=== PATIENT | male | born 1955 | race Caucasian/White ===

== ENCOUNTER → 2016-11-08 | Day surgery (SDC) | payer MEDICAID ==
[~2016-11-08] MED LIST: ALBUMIN HUMAN 100 ML IV PRN
[2016-11-08 10:02] VITALS: BP 152/82
[2016-11-08 10:22] LABS: PROTHROMBIN TIME 14.1 SEC (11.4-15.4)
[2016-11-08 10:23] LABS: PARTIAL THROMBOPLASTIN TIME 32.4 SEC (23.5-35.8)
[2016-11-08 10:59] LABS: HEMOGLOBIN 11.8 g/dL (13.5-17.0); HGB HCT DIFFERENCE -0.6; MEAN CORPUSCULAR HEMOGLOBIN 28.6 pg (27.0-33.4); MEAN CORPUSCULAR HGB CONC 32.8 g/dL (32.0-36.0); MEAN CORPUSCULAR VOLUME 87 fl (80-97); RED BLOOD COUNT 4.13 10^6/uL (4.35-5.55); RED CELL DISTRIBUTION WIDTH 16.5 % (11.5-14.0); WHITE BLOOD COUNT 5.8 10^3/uL (4.0-10.5)
[2016-11-08 11:09] LABS: ANION GAP 7 (5-19); BLOOD UREA NITROGEN 27 mg/dL (7-20); CALCIUM 8.8 mg/dL (8.4-10.2); CARBON DIOXIDE 30 mmol/L (22-30); CHLORIDE 103 mmol/L (98-107); CREATININE RESULT 1.16 mg/dL (0.52-1.25); GLUCOSE 63 mg/dL (75-110); POTASSIUM 4.3 mmol/L (3.6-5.0); SODIUM 140.2 mmol/L (137-145)
--- NOTE | 2016-11-08 14:41 | RADIOLOGY REPORT (SQ) ---
EXAM DESCRIPTION: U/S ABDOMEN LIMITED W/O DOP COMPLETED DATE/TIME: 11/08/2016 12:03 pm REASON FOR STUDY: ASCITES R18.8 OTHER ASCITES COMPARISON: None. TECHNIQUE: Limited Static and real time jovel scale imaging performed of the 4 abdominal quadrants an d the midline. LIMITATIONS: None. FINDINGS: ASCITES: None identified. OTHER: No other significant finding. IMPRESSION: NO EVIDENCE FOR ASCITES. TECHNICAL DOCUMENTATION: JOB ID: [id number] [employer]- All Rights Reserved
== END ==
LOC: RAD 09:05
PROVIDERS: ATTEND Family Medicine
PROC: 0W9G3ZZ Drainage of Peritoneal Cavity, Percutaneous Approach (ICD-10-PCS; principal; 2016-11-08)
DX: R18.8 Other ascites (principal)
CPT/HCPCS: 36415; 85027; 85610; 85730; 80048; 76705; P9047

== ENCOUNTER 2017-05-01 22:27 | Observation (INO) | payer MEDICAID ==
[2017-05-01] MEDS ORDERED: ONDANSETRON HCL INJ/PF 4 MG/2 ML SDV IV ONE (23:01)
[2017-05-01] MEDS ORDERED: NORMAL SALINE 1000 ML 1,000 ML IV ONE (23:01)
[2017-05-01] MEDS ORDERED: ONDANSETRON HCL INJ/PF 4 MG/2 ML SDV ONE (23:04)
--- NOTE | 2017-05-01 23:27 | ER Document Report ---
ED General - General Chief Complaint: Abdominal Pain Stated Complaint: ABDOMINAL PAIN Time Seen by Provider: 05/01/17 23:00 Notes: Patient is a 61-year-old male with a past medical history of chronic hep C cirrhosis, peripheral vascular disease, insulin-dependent diabetes, hypertension , hyperlipidemia, chronic pain on methadone, who presents with 24 hours of progressively worsening abdominal pain and vomiting. Patient notes that he has had multiple episodes of a greenish colored vomitus since onset of the pain. He describes the pain as being present in his central abdomen and is a dull, constant, cramping pain. Nothing improves or worsens that pain. He denies any history of similar symptoms in the past. He has a past abdominal surgical history of a cholecystectomy. He denies any fever. He has not seen his general doctor regarding today's concerns. He denies any chest pain or shortness of breath. He has had a bowel movement today. TRAVEL OUTSIDE OF THE [place] IN LAST 30 DAYS: No - Related Data Allergies/Adverse Reactions: acetaminophen [From Darvocet-N 100] Allergy (Severe, Verified 04/09/13 17:30) Generalized Itching Penicillins Allergy (Verified 11/03/13 19:23) propoxyphene napsylate [From Darvocet-N 100] Allergy (Verified 04/09/13 17:30) Past Medical History - General Information source: Patient - Social History Smoking Status: Former Smoker Frequency of alcohol use: None Drug Abuse: None Lives with: Alone Family History: Reviewed & Not Pertinent Patient has suicidal ideation: No Patient has homicidal ideation: No - Past Medical History Cardiac Medical History: Reports: Hx Hypercholesterolemia, Hx Hypertension Denies: Hx Atrial Fibrillation, Hx Congestive Heart Failure, Hx Coronary Artery Disease, Hx Heart Attack, Hx Peripheral Vascular Disease, Hx Pulmonary Embolism, Hx Heart Murmur Pulmonary Medical History: Reports: Hx COPD - ON MEDICATION Denies: Hx Asthma, Hx Bronchitis, Hx Pneumonia, Hx Respiratory Failure, Hx Sleep Apnea, Hx Tuberculosis Neurological Medical History: Denies: Hx Cerebrovascular Accident, Hx Seizures Endocrine Medical History: Reports: Hx Diabetes Mellitus Type 2, Hx Hypothyroidism - on meds. Denies: Hx Graves' Disease, Hx Hyperthyroidism Renal/ Medical History: Denies: Hx Benign Prostatic Hyperplasia, Hx End Stage Renal Disease, Hx Peritoneal Dialysis Malignancy Medical History: Denies Hx Lung Cancer GI Medical History: Reports: Hx Cirrhosis, Hx Gastroesophageal Reflux Disease - mild. Denies: Hx Crohn's Disease, Hx Hiatal Hernia, Hx Irritable Bowel, Hx Liver Failure, Hx Pancreatitis, Hx Ulcer Musculoskeltal Medical History: Reports Hx Arthritis, Denies Hx Fibromyalgia, Denies Hx Muscular Dystrophy Psychiatric Medical History: Reports: Hx Depression Traumatic Medical History: Denies: Hx Fractures Past Surgical History: Reports: Hx Cholecystectomy, Hx Orthopedic Surgery - Lt BKA. Denies: Hx Appendectomy, Hx Bowel Surgery, Hx Colostomy, Hx Coronary Artery Bypass Graft, Hx Gastric Bypass Surgery, Hx Herniorrhaphy, Hx Pacemaker, Hx Tonsillectomy - Immunizations Hx Diphtheria, Pertussis, Tetanus Vaccination: Yes Hx Pneumococcal Vaccination: 02/07/13 Review of Systems - Review of Systems Notes: Constitutional: Negative for fever. HENT: Negative for sore throat. Eyes: Negative for visual changes. Cardiovascular: Negative for chest pain. Respiratory: Negative for shortness of breath. Gastrointestinal: Positive for abdominal pain and vomiting Genitourinary: Negative for dysuria. Musculoskeletal: Negative for back pain. Skin: Negative for rash. Neurological: Negative for headaches, weakness or numbness. 10 point ROS negative except as marked above and in HPI. Physical Exam - Vital signs Vitals: Resp Pulse Ox 19 98 05/01/17 22:37 05/01/17 22:37 Interpretation: Tachycardic Notes: PHYSICAL EXAMINATION: GENERAL: Chronically ill in appearance but in no acute distress HEAD: Atraumatic, normocephalic. EYES: Pupils equal round and reactive to light, extraocular movements intact, sclera anicteric, conjunctiva are normal. ENT: nares patent, oropharynx clear without exudates. Dry mucous membranes. NECK: Normal range of motion, supple without lymphadenopathy LUNGS: Breath sounds clear to auscultation bilaterally and equal. No wheezes rales or rhonchi. HEART: Regular tachycardia without murmurs ABDOMEN: Moderately distended abdomen, caput medusa present, bowel sounds are present. Diffuse mild generalized tenderness to palpation without rebound or guarding. No free fluid on bedside ultrasound. EXTREMITIES: Normal range of motion, no pitting or edema. No cyanosis. NEUROLOGICAL: No focal neurological deficits. Moves all extremities spontaneously and on command. PSYCH: Normal mood, normal affect. SKIN: Warm, Dry, normal turgor, no rashes or lesions noted. Course - Re-evaluation Re-evalutation: 05/01/17 23:26 Patient presents with 12 hours of progressively worsening generalized lower abdominal pain most focal to the right lower quadrant. He does have a history of liver cirrhosis with caput medusa on exam but bedside ultrasound does not reveal any intraperitoneal fluid to suggest a possible diagnosis of spontaneous bacterial peritonitis or any fluid that would be amenable to paracentesis. Patient has been vomiting although he reports he had a bowel movement today and continues to pass flatus. However, given prior surguries SBO is on the differential He is very status post cholecystectomy several years ago effectively removing biliary pathology from the differential diagnosis. Patient also reports that he started new medicines to help move his bowels today and believes that this may be the cause of his pain. Will proceed with labs, CT abdomen pelvis and reassess 05/02/17 01:44 CT shows findings consistent with an SBO. Will insert NG tube, consult with surgery. 05/02/17 01:54 I discussed this case with the surgeon on-call who has accepted the patient. - Vital Signs Vital signs: Temp Pulse Resp BP Pulse Ox 98.6 F 17 154/67 H 96 05/01/17 23:05 05/01/17 23:05 05/01/17 23:05 05/01/17 23:05 - Laboratory Result Diagrams: 05/01/17 23:51 05/01/17 23:51 Laboratory results interpreted by me: 05/01/17 05/01/17 05/02/17 23:51 23:51 00:44 Hgb 12.6 L RDW 15.9 H Plt Count 115 L Seg Neutrophils % 84.3 H Lymphocytes % 9.8 L BUN 43 H Creatinine 1.34 H Est GFR (Non-Af Amer) 54 L Glucose 183 H Urine Protein >=500 H Urine Glucose (UA) 150 H Urine Blood SMALL H - Diagnostic Test Radiology reviewed: Reports reviewed Discharge - Discharge Clinical Impression: Small bowel obstruction, Dehydration Vomiting Qualifiers: Vomiting type: unspecified Vomiting Intractability: non-intractable Nausea presence: with nausea Qualified Code(s): R11.2 - Nausea with vomiting, unspecified Condition: Fair Disposition: ADMITTED INPATIENT Admitting Provider: Surgicalist - [facility] Admitted: Surgical Floor
[2017-05-02 00:04] LABS: ABSOLUTE BASOPHILS # (AUTO) 0.1 10^3/uL (0.0-0.2); ABSOLUTE LYMPHOCYTES (AUTO) 0.7 10^3/uL (0.5-4.7); ABSOLUTE MONOCYTES (AUTO) 0.3 10^3/uL (0.1-1.4); ABSOLUTE NEUT (AUTO) 6.1 10^3/uL (1.7-8.2); BASOPHILS % (AUTO) 0.9 % (0-2); EOSINOPHILS % (AUTO) 0.6 % (0-6); HEMATOCRIT 38.1 % (37.9-51.0); HEMOGLOBIN 12.6 g/dL (13.5-17.0); LYMPHOCYTES % (AUTO) 9.8 % (13-45); MEAN CORPUSCULAR HEMOGLOBIN 27.7 pg (27.0-33.4); MEAN CORPUSCULAR VOLUME 84 fl (80-97); MONOCYTES % (AUTO) 4.4 % (3-13); PLATELET COUNT 115 10^3/uL (150-450); RED BLOOD COUNT 4.55 10^6/uL (4.35-5.55); RED CELL DISTRIBUTION WIDTH 15.9 % (11.5-14.0); SEGMENTED NEUTROPHILS % (AUTO) 84.3 % (42-78); TOTAL CELLS COUNTED % (AUTO) 100 %; WHITE BLOOD COUNT 7.3 10^3/uL (4.0-10.5)
[2017-05-02 00:23] LABS: ALANINE AMINOTRANSFERASE 51 U/L (21-72); ALBUMIN 3.8 g/dL (3.5-5.0); ALKALINE PHOSPHATASE 79 U/L (38-126); ANION GAP 13 (5-19); ASPARTATE AMINO TRANSFERASE 45 U/L (17-59); BILIRUBIN,DIRECT 0.4 mg/dL (0.0-0.4); BILIRUBIN,TOTAL 0.7 mg/dL (0.2-1.3); BLOOD UREA NITROGEN 43 mg/dL (7-20); CALCIUM 9.6 mg/dL (8.4-10.2); CARBON DIOXIDE 27 mmol/L (22-30); CHLORIDE 103 mmol/L (98-107); GLUCOSE 183 mg/dL (75-110); LIPASE 63.3 U/L (23-300); POTASSIUM 4.6 mmol/L (3.6-5.0); SODIUM 143.1 mmol/L (137-145); TOTAL PROTEIN 7.8 g/dL (6.3-8.2)
--- NOTE | 2017-05-02 01:28 | RADIOLOGY REPORT (SQ) ---
EXAM DESCRIPTION: CT ABD/PELVIS WITH IV ONLY COMPLETED DATE/TIME: 05/02/2017 12:58 am REASON FOR STUDY: rlq abdominal pain, vomiting COMPARISON: CT abdomen and pelvis 04/09/2013. TECHNIQUE: CT scan of the abdomen and pelvis performed using helical scanning technique with dynamic intravenous contrast injection. No oral contrast. Images reviewed with lung, soft tissue, and bone windows. Reconstructed coronal and sagittal MPR images reviewed. Delayed images for evaluation of the urinary system also acquired. All images stored on PACS. All CT scanners at this facility use dose modulation, iterative reconstruction, and/or weight based d osing when appropriate to reduce radiation dose to as low as reasonably achievable (ALARA). [facility]: Dose Right [facility]: CareDose [facility]: Dose Right [facility]: Teradose 4D [facility]: [employer] CONTRAST TYPE AND DOSE: contrast/concentration: Isovue 370.00 mg/ml; Total Contrast Delivered: 90.0 ml; Total Saline Delivered: 70.0 ml RENAL FUNCTION: Creatinine 1.34 RADIATION DOSE: CT Rad equipment meets quality standard of care and radiation dose reduction techniq ues were employed. CTDIvol: 20.8 mGy. DLP: 2459 mGy-cm.. LIMITATIONS: None. FINDINGS: LOWER CHEST: Ground-glass opacity at the left lower lobe. No pleural effusion. Coronary arteries calcifications are noted. LIVER: Diffuse decreased attenuation. Mildly nodular contour with hypertrophy of the left 5th lobe a nd caudate lobe. No masses. Periportal adenopathy measuring 1.3 x 3.0 cm. SPLEEN: Enlarged measuring 17.3 cm. PANCREAS: No significant calcifications. No adjacent inflammation or peripancreatic fluid collections . Pancreatic duct not dilated. GALLBLADDER: Surgically absent. ADRENAL GLANDS: No significant masses or asymmetry. RIGHT KIDNEY AND URETER: No solid masses. No significant calcifications. No hydronephrosis or hyd roureter. LEFT KIDNEY AND URETER: No solid masses. No significant calcifications. No hydronephrosis or hydr oureter. AORTA AND VESSELS: No abdominal aortic aneurysm. RETROPERITONEUM: No retroperitoneal hemorrhage or masses. BOWEL AND PERITONEAL CAVITY: The stomach is distended with an air-fluid level. There are multiple di lated small bowel loops with air-fluid levels. The distal small bowel is collapsed. There is changi ng caliber of small bowel loops in the midline lower abdomen. No free fluid or free air. APPENDIX: Normal. PELVIS: The urinary bladder is decompressed. No pelvic mass. No free fluid. ABDOMINAL WALL: There is diastasis recti. Small fat containing paraumbilical hernia. BONES: Degenerative changes in the spine. IMPRESSION: 1. Distended stomach with an air-fluid level and multiple dilated small bowel loops with air-fluid levels, worrisome for small bowel obstruction, possible transition point in the midline lo wer abdomen. 2. Fatty infiltration of the liver. Mildly nodular contour of the liver with hypertrophy of the left hepatic lobe and caudate lobe, suggestive of cirrhosis. Periportal adenopathy. 3. Splenomegaly. 4. Ground-glass opacity at the left lower lobe, probably representing pneumonia. TECHNICAL DOCUMENTATION: JOB ID: [id number] [facility] Quality ID # [id number]: Final reports with documentation of one or more dose reduction techniques (e.g., Au tomated exposure control, adjustment of the mA and/or kV according to patient size, use of iterative reconstruction technique) 2010 [employer]- All Rights Reserved
[2017-05-02 01:30] LABS: APPEARANCE,URINE CLEAR; BILIRUBIN,URINE NEGATIVE (NEGATIVE); COLOR,URINE YELLOW; GLUCOSE, URINE 150 mg/dL (NEGATIVE); KETONES,URINE NEGATIVE (NEGATIVE); LEUKOCYTE ESTERASE,URINE NEGATIVE (NEGATIVE); NITRITE,URINE NEGATIVE (NEGATIVE); PROTEIN,URINE >=500 mg/dL (NEGATIVE); URINE SPECIFIC GRAVITY 1.016; UROBILINOGEN,URINE NEGATIVE mg/dL (<2.0)
[2017-05-02] MEDS ORDERED: MIDAZOLAM 2 MG/2 ML INJ IV ONE ×2 (01:44→03:35)
[2017-05-02] MEDS ORDERED: NORMAL SALINE 1000 ML 1,000 ML IV ONE (01:51)
[2017-05-02] MEDS ORDERED: LIDOCAINE 2% VISCOUS SOLN 20 ML UDCUP PO ONE ×2 (02:02→03:35)
--- NOTE | 2017-05-02 03:42 | RADIOLOGY REPORT (SQ) ---
EXAM DESCRIPTION: NASO/OROGASTRIC TUBE PLACEMENT COMPLETED DATE/TIME: 05/02/2017 2:34 am REASON FOR STUDY: placement verification COMPARISON: CT abdomen and pelvis 05/02/2017. TECHNIQUE: Frontal view of the chest/upper abdomen. LIMITATIONS: Patient's body habitus. FINDINGS: An enteric tube is coiled at the distal esophagus with the tip at the upper esophagus, the C7 level. The heart is upper normal limit in size. Airspace opacity seen at the left lung base. No sizable pl eural effusion or pneumothorax. IMPRESSION: 1. Enteric tube coiled at the distal esophagus with the tip at the upper esophagus. Re positioning recommended. 2. Airspace opacity at the left lung base, may represent atelectasis or pneumonia. COMMENT: Pertinent findings on the imaging study reported as a CRITICAL RESULT to ERICA christianson t03:36 hrs on 05/02/2017. Category of Critical Result: Enteric tube coiled at the distal esophagus with the tip at the upper es ophagus. Repositioning recommended. TECHNICAL DOCUMENTATION: JOB ID: [id number] [place]-64 2010 [employer]- All Rights Reserved
[2017-05-02] MEDS: MORPHINE SULFATE 10 MG/ML INJ IV PRN ×2 (04:58→07:06)
--- NOTE | 2017-05-02 05:03 | RADIOLOGY REPORT (SQ) ---
EXAM DESCRIPTION: NASO/OROGASTRIC TUBE PLACEMENT COMPLETED DATE/TIME: 05/02/2017 4:35 am REASON FOR STUDY: verification ng placement COMPARISON: CT abdomen and pelvis and chest/ upper abdomen x-ray 05/02/2017. TECHNIQUE: 1 supine frontal view of the chest/upper abdomen was obtained on 05/02/2017 at 04:25 hours. LIMITATIONS: Patient's body habitus. FINDINGS: An enteric tube terminates in the left upper quadrant, in the expected location of the gas tric body. Otherwise, no significant interval change in the appearance of the visualized chest. IMPRESSION: Enteric tube with the tip at the gastric body. TECHNICAL DOCUMENTATION: JOB ID: [id number] [id number] 2010 [employer]- All Rights Reserved
--- NOTE | 2017-05-02 06:27 | EKG REPORT ---
SEVERITY:- ABNORMAL ECG - SINUS RHYTHM INFERIOR INFARCT, OLD CONSIDER ANTERIOR INFARCT BORDERLINE PROLONGED QT INTERVAL : Confirmed by: Paramjit Thakkar MD 02-May-2017 06:27:09
[2017-05-02] MEDS ORDERED: NORMAL SALINE 1000 ML 1,000 ML IV PRN (07:18)
--- NOTE | 2017-05-02 08:39 | PDOC H&P ---
History of Present Illness Admission Date/PCP: 05/02/17 02:25 CHARLIE MCGILL MD Patient complains of: Transient abdominal pain last night History of Present Illness: ART SORENSEN is a 61 year old male who persented to the ER last night with abdominal pain that started earlier in the day. It was mainly in the right lower side. He did have a bowel movement yesterday morning but felt like he needed to move his bowels overnight when he had his symptoms. He is opiate- dependent and is on Methadone. He also takes a laxative usually. He denies any nausea or vomiting. No abdominal distension. A CT abdomen done in the ER was concerning for possible bowel obstruction as he had some dilated loops of small bowel. He had an NGT placed. The pain is gone now and he wants to know if he can go home. Past Medical History Cardiac Medical History: Reports: Hyperlipidema, Hypertension Denies: Atrial Fibrillation, Congestive Heart Failure, Coronary Artery Disease, Myocardial Infarction, Peripheral Vascular Disease, Pulmonary Embolism , Heart Murmur Pulmonary Medical History: Reports: Chronic Obstructive Pulmonary Disease (COPD ) - ON MEDICATION Denies: Asthma, Bronchitis, Pneumonia, Respiratory Failure, Sleep Apnea, Tuberculosis Neurological Medical History: Denies: Seizures Endocrine Medical History: Reports: Diabetes Mellitus Type 2, Hypothyroidism - on meds Denies: Hyperthyroidism Renal/ Medical History: Denies: End Stage Renal Disease Malignancy Medical History: Denies: Lung Cancer GI Medical History: Reports: Cirrhosis, Gastroesophageal Reflux Disease - mild Denies: Crohn's Disease, Hiatal Hernia Musculoskeltal Medical History: Reports: Arthritis Denies: Fibromyalgia Psychiatric Medical History: Reports: Depression Hematology: Denies: Anemia Past Surgical History Past Surgical History: Reports: Cholecystectomy, Orthopedic Surgery - Lt BKA Denies: Appendectomy, Colostomy, Coronary Artery Bypass Graft, Gastric Bypass Surgery, Herniorrhaphy, Pacemaker, Tonsillectomy Social History Lives with: Alone Smoking Status: Former Smoker Frequency of Alcohol Use: None Hx Recreational Drug Use: No Hx Prescription Drug Abuse: No Family History Family History: Reviewed & Not Pertinent Parental Family History Reviewed: No Children Family History Reviewed: Unknown Sibling(s) Family History Reviewed.: Unknown Medication/Allergy Allergies/Adverse Reactions: acetaminophen [From Darvocet-N 100] Allergy (Severe, Verified 04/09/13 17:30) Generalized Itching Penicillins Allergy (Verified 11/03/13 19:23) propoxyphene napsylate [From Darvocet-N 100] Allergy (Verified 04/09/13 17:30) Review of Systems Constitutional: ABSENT: as per HPI, anorexia, chills, fatigue, fever(s), headache(s), night sweats, weakness, weight gain, weight loss, other Eyes: ABSENT: as per HPI, visual disturbances, other Ears: ABSENT: as per HPI, hearing changes, other Nose, Mouth, and Throat: ABSENT: as per HPI, headache(s), mouth pain, sore throat, vertigo, other Cardiovascular: ABSENT: as per HPI, chest pain, dyspnea on exertion, edema, orthropnea, palpitations, other Respiratory: ABSENT: as per HPI, cough, dyspnea, hemoptysis, sputum, other Gastrointestinal: PRESENT: as per HPI Genitourinary: ABSENT: as per HPI, difficulty urinating, dysuria, hematuria, nocturia, other Musculoskeletal: PRESENT: other - Left below knee amputation Neurological: ABSENT: abnormal gait, abnormal speech, confusion, dizziness, focal weakness, syncope Psychiatric: ABSENT: as per HPI, anxiety, depression, hallucinations, homidical ideation, suicidal ideation, other Endocrine: ABSENT: as per HPI, cold intolerance, flushing, heat intolerance, menstrual abnormalities, polydipsia, polyphagia, polyuria, other Physical Exam Vital Signs: Temp Pulse Resp BP Pulse Ox 98.6 F 18 161/87 H 95 05/01/17 23:05 05/02/17 06:01 05/02/17 06:00 05/02/17 06:01 Intake & Output 05/01/17 05/02/17 05/03/17 06:59 06:59 06:59 Intake Total 200 Balance 200 General appearance: PRESENT: no acute distress, cooperative, morbidly obese Head exam: PRESENT: atraumatic, normocephalic Eye exam: PRESENT: conjunctiva pink, EOMI, PERRLA Respiratory exam: PRESENT: clear to auscultation adrian, unlabored Cardiovascular exam: PRESENT: RRR, +S1, +S2 GI/Abdominal exam: PRESENT: normal bowel sounds, soft, other - Abdomen is obese , nondistended, nontender; there is a 10cm horizontal scar in the RLQ (not appendectomy); there is a 2.5cm umbilical incisional hernia, no contents at this time, nontender. Rectal exam: PRESENT: deferred Musculoskeletal exam: PRESENT: other - Left Below knee amputation Neurological exam: PRESENT: alert, awake, oriented to person, oriented to place , oriented to time, oriented to situation, CN II-XII grossly intact. ABSENT: motor sensory deficit Psychiatric exam: PRESENT: appropriate affect, normal mood. ABSENT: homicidal ideation, suicidal ideation Results Impressions: Abdomen/Pelvis CT 05/02/17 00:00 IMPRESSION: 1. Distended stomach with an air-fluid level and multiple dilated small bowel loops with air-fluid levels, worrisome for small bowel obstruction, possible transition point in the midline lower abdomen. 2. Fatty infiltration of the liver. Mildly nodular contour of the liver with hypertrophy of the left hepatic lobe and caudate lobe, suggestive of cirrhosis. Periportal adenopathy. 3. Splenomegaly. 4. Ground-glass opacity at the left lower lobe, probably representing pneumonia. Assessment & Plan - Time Time Spent: 30 to 50 Minutes Critical Time spent with patient: 15-24 minutes Anticipated discharge: Home Within: within 24 hours - Plan Summary Plan Summary: I personally reviewed the CT abdomen and do not think he has small bowel obstruction. His pain was transient and has resolved - may be related to his opiate dependence He will be admitted for observation and discharged later this afternoon / evening if he remains asymptomatic. DC NGT Regular diet as tolerated. Continue all home meds.
[2017-05-02] MEDS ORDERED: ONDANSETRON HCL INJ/PF 4 MG/2 ML SDV IV PRN (08:40)
--- NOTE | 2017-05-02 08:49 | PDOC DISCHARGE SUMMARY ---
Discharge Summary (SDC) - Discharge Final Diagnosis: Abdominal pain Discharge Date: 05/02/17 Condition: Stable Treatment or Instructions: Return to ER if recurrent pain, nausea, vomiting, abdominal distension Referrals: CHARLIE MCGILL MD [Primary Care Provider] - Follow up as needed Discharge Diet: As Tolerated, Regular Discharge Activity: Activity As Tolerated Report the Following to Your Physician Immediately: Nausea, Vomiting, Increase in Pain, Fever over 101 Degrees
[2017-05-02 08:58] VITALS: BP 148/85
[2017-05-02] MEDS ORDERED: ENOXAPARIN SODIUM INJ 40 MG/0.4 ML DISP.SYRIN SUBCUT SCH (10:00)
--- NOTE | 2017-05-03 11:49 | PDOC DISCHARGE SUMMARY ---
General - Admit/Disc Date/PCP Admission Date/Primary Care Provider: 05/02/17 02:25 CHARLIE MCGILL MD Discharge Date: 05/02/17 - Additional Information Discharge Diet: As Tolerated, Regular Discharge Activity: Activity As Tolerated History of Present Illness History of Present Illness: ART SORENSEN is a 61 year old male who persented to the ER last night with abdominal pain that started earlier in the day. It was mainly in the right lower side. He did have a bowel movement yesterday morning but felt like he needed to move his bowels overnight when he had his symptoms. He is opiate- dependent and is on Methadone. He also takes a laxative usually. He denies any nausea or vomiting. No abdominal distension. A CT abdomen done in the ER was concerning for possible bowel obstruction as he had some dilated loops of small bowel. He had an NGT placed. The pain is gone now and he wants to know if he can go home. Hospital Course Hospital Course: The patient was observed largely in the ER. His pain had subsided by the time of admission and he was discharged home. Physical Exam Vital Signs: Temp Pulse Resp BP Pulse Ox 98.8 F 99 18 148/85 H 95 05/02/17 08:55 05/02/17 08:55 05/02/17 08:55 05/02/17 08:55 05/02/17 08:55 Intake & Output 05/02/17 05/03/17 05/04/17 06:59 06:59 06:59 Intake Total 200 Balance 200 Weight 112.7 kg General appearance: PRESENT: no acute distress, morbidly obese Head exam: PRESENT: atraumatic, normocephalic Eye exam: PRESENT: conjunctiva pink, EOMI Ear exam: PRESENT: normal external ear exam Mouth exam: PRESENT: moist Neck exam: ABSENT: carotid bruit, JVD, lymphadenopathy, thyromegaly Respiratory exam: PRESENT: clear to auscultation adrian. ABSENT: rales, rhonchi, wheezes Cardiovascular exam: PRESENT: RRR. ABSENT: diastolic murmur, rubs, systolic murmur GI/Abdominal exam: PRESENT: normal bowel sounds, soft. ABSENT: distended, guarding, mass, organolmegaly, rebound, tenderness Extremities exam: PRESENT: other - left below knee amputation - healthy stump Neurological exam: PRESENT: alert, awake, oriented to person, oriented to place , oriented to time, oriented to situation, CN II-XII grossly intact. ABSENT: motor sensory deficit Psychiatric exam: PRESENT: appropriate affect, normal mood. ABSENT: homicidal ideation, suicidal ideation Results Impressions: Abdomen/Pelvis CT 05/02/17 00:00 IMPRESSION: 1. Distended stomach with an air-fluid level and multiple dilated small bowel loops with air-fluid levels, worrisome for small bowel obstruction, possible transition point in the midline lower abdomen. 2. Fatty infiltration of the liver. Mildly nodular contour of the liver with hypertrophy of the left hepatic lobe and caudate lobe, suggestive of cirrhosis. Periportal adenopathy. 3. Splenomegaly. 4. Ground-glass opacity at the left lower lobe, probably representing pneumonia. Plan Discharge Plan: The patient is discharged home. Advised to return to the ER if pain, nausea or vomiting returns He will continue all his home meds - no new scripts.
== END 2017-05-02 10:31 | disposition home or self-care (01) ==
LOC: ER 22:27 → EH 05-02 02:25 → INTOOBSV 05-02 02:25
PROVIDERS: ATTEND Surgery
DX: R10.31 Right lower quadrant pain (principal); F11.20 Opioid dependence, uncomplicated; R14.0 Abdominal distension (gaseous); K76.0 Fatty (change of) liver, not elsewhere classified; R16.1 Splenomegaly, not elsewhere classified; K42.9 Umbilical hernia without obstruction or gangrene; E66.9 Obesity, unspecified; K74.69 Other cirrhosis of liver; B18.2 Chronic viral hepatitis C; E11.9 Type 2 diabetes mellitus without complications; E86.0 Dehydration; R11.2 Nausea with vomiting, unspecified; I73.9 Peripheral vascular disease, unspecified; J44.9 Chronic obstructive pulmonary disease, unspecified; E03.9 Hypothyroidism, unspecified; R00.0 Tachycardia, unspecified; Z79.4 Long term (current) use of insulin; G89.29 Other chronic pain; Z68.35 Body mass index [BMI] 35.0-35.9, adult; Z90.49 Acquired absence of other specified parts of digestive tract; Z87.891 Personal history of nicotine dependence; Z89.512 Acquired absence of left leg below knee
CPT/HCPCS: 93005; 99285; 96361; 96374; 36415; 83690; 85025; 80053; 81001; 84484; 43752; 74177; 93010; J2250; J3490; J2270; J2405; J7030 ×2

== ENCOUNTER 2017-10-20 12:20 | Day surgery (SDC) | payer MEDICAID ==
[2017-10-20] MEDS ORDERED: MIDAZOLAM 2 MG/2 ML INJ ONE (12:27)
[2017-10-20] MEDS ORDERED: ONDANSETRON HCL INJ/PF 4 MG/2 ML SDV ONE (12:27)
[2017-10-20] MEDS ORDERED: DIPHENHYDRAMINE HCL 50 MG/ML VIAL ONE (12:27)
[2017-10-20] MEDS ORDERED: NALOXONE HCL INJ/PF 0.4 MG/1 ML SDV ONE (12:27)
[2017-10-20] MEDS ORDERED: GLUCAGON,HUMAN RECOMB 1 MG INJ ONE (12:28)
[2017-10-20] MEDS ORDERED: FENTANYL CITRATE INJ/PF 100 MCG/2 ML AMPUL ONE (12:28)
[2017-10-20] MEDS ORDERED: EPINEPHRINE INJ 1 MG/10 ML DISP.SYRIN ONE (12:28)
[2017-10-20] MEDS ORDERED: FLUMAZENIL INJ 0.5 MG/5 ML VIAL ONE (12:28)
[2017-10-20] MEDS: MIDAZOLAM 2 MG/2 ML INJ ONE ×2 (13:10→13:14)
--- NOTE | 2017-10-20 13:27 | Operative Report ---
Operative Report DATE OF SURGERY: 10/20/17 Operative Report: The risks benefits and alternatives of the procedure explained to the patient in detail and informed consent is obtained.A GIF Olympus video scope was inserted into the patient's mouth and hypopharynx, the esophagus is identified intubated and insufflated, the scope was then advanced through the esophagus stomach and duodenum, retroflexion maneuver is done, the esophagus stomach and first and second portions of the duodenum examined PREOPERATIVE DIAGNOSIS: Dysphagia POSTOPERATIVE DIAGNOSIS: Schatzki's ring status post breakage. Nodular gastritis status post biopsy rule out Helicobacter pylori OPERATION: EGD with biopsy SURGEON: MCKENZIE TSANG ANESTHESIA: Moderate Sedation - 4 mg of Versed, 50 mcg of fentanyl. Conscious sedation monitoring time 30 minutes. TISSUE REMOVED OR ALTERED: As noted above. COMPLICATIONS: None. ESTIMATED BLOOD LOSS: None. INTRAOPERATIVE FINDINGS: As noted above. PROCEDURE: Patient tolerated the procedure well. No immediate postprocedure complications are noted. Patient discharged in good condition. Discharge date 10/20/2017. Discharge diet: Regular. Discharge activity: Regular. 2-3 week follow-up to discuss findings. Patient is instructed to call the office or proceed to the emergency room should there be any further problems or questions. We will wait on pathology.
[2017-10-20 15:04] VITALS: BP 113/60
== END 2017-10-20 14:30 | disposition home or self-care (01) ==
LOC: END 12:20
PROVIDERS: ATTEND Internal Medicine Gastroenterology
DX: K22.2 Esophageal obstruction (principal); K29.50 Unspecified chronic gastritis without bleeding; K20.9 Esophagitis, unspecified; K64.8 Other hemorrhoids; Z79.4 Long term (current) use of insulin; B18.2 Chronic viral hepatitis C; Z89.512 Acquired absence of left leg below knee; E11.65 Type 2 diabetes mellitus with hyperglycemia; I10 Essential (primary) hypertension; J44.9 Chronic obstructive pulmonary disease, unspecified; I73.9 Peripheral vascular disease, unspecified; K59.03 Drug induced constipation; T40.2X5A Adverse effect of other opioids, initial encounter; K74.60 Unspecified cirrhosis of liver; Z79.899 Other long term (current) drug therapy; Z79.1 Long term (current) use of non-steroidal anti-inflammatories (NSAID); Z79.51 Long term (current) use of inhaled steroids; Z88.0 Allergy status to penicillin
CPT/HCPCS: 43239; 82962; 88342 ×2; 88305 ×2; J2250; J3010; J0171; J1200; J1610; J2310; J2405; J3490

== ENCOUNTER 2018-01-16 15:41 | Emergency (ER) | payer MEDICAID ==
--- NOTE | 2018-01-16 17:10 | ER Document Report ---
ED Medical Screen (RME) - General Chief Complaint: Abnormal Lab Results Stated Complaint: ABNORMAL LABS Time Seen by Provider: 01/16/18 16:59 Notes: Patient is a 62-year-old male with hepatitis C, diabetes mellitus that presents to the emergency department for chief complaint of nausea, vomiting, low hemoglobin. Patient is being treated for hepatitis C, and they have been monitoring his blood counts, about a week ago was 6.9 for his hemoglobin, and it dropped to 5.0 this Tuesday, has been lightheaded, but has not had syncopal episodes.. ROS: Unless otherwise stated in this report the patient's positive and negative responses for review of systems for constitutional, eyes, ENT, cardiovascular, respiratory, gastrointestinal, neurological, genitourinary, musculoskeletal, and integumentary systems and related systems to the presenting problem are either as stated in the HPI or were not pertinent or were negative for the symptoms and/or complaints related to the presenting medical problem. PHYSICAL EXAMINATION: Vital signs reviewed. GENERAL: Chronically ill-appearing male, no acute distress HEAD: Atraumatic, normocephalic. EYES: Pupils equal round extraocular movements intact, conjunctiva are normal. ENT: Nares patent NECK: Normal range of motion CV: Heart regular rate and rhythm LUNGS: No respiratory distress Musculoskeletal: Normal range of motion NEUROLOGICAL: Normal speech PSYCH: Normal mood, normal affect. Skin: Pallor noted MDM: Patient seen and examined for rapid initial assessment. Vital signs reviewed. A comprehensive ED assessment and evaluation of the patient, analysis of test results and completion of the medical decision making process will be conducted by additional ED providers. *Note is created using voice recognition software and may contain spelling, syntax or grammatical errors. TRAVEL OUTSIDE OF THE [place] IN LAST 30 DAYS: No - Related Data Allergies/Adverse Reactions: acetaminophen [From Darvocet-N 100] Allergy (Mild, Verified 10/17/17 12:51) Generalized Itching Penicillins Allergy (Mild, Verified 10/17/17 12:51) Generalized Itching propoxyphene napsylate [From Darvocet-N 100] Allergy (Mild, Verified 10/17/17 12 :51) Generalized Itching Past Medical History - Social History Chew tobacco use (# tins/day): No Frequency of alcohol use: None Drug Abuse: None - Past Medical History Cardiac Medical History: Reports: Hx Hypercholesterolemia Denies: Hx Atrial Fibrillation, Hx Congestive Heart Failure, Hx Coronary Artery Disease, Hx Heart Attack, Hx Hypertension, Hx Peripheral Vascular Disease , Hx Pulmonary Embolism, Hx Heart Murmur Pulmonary Medical History: Reports: Hx COPD - ON MEDICATION Denies: Hx Asthma, Hx Bronchitis, Hx Pneumonia, Hx Respiratory Failure, Hx Sleep Apnea, Hx Tuberculosis Neurological Medical History: Denies: Hx Cerebrovascular Accident, Hx Seizures Endocrine Medical History: Reports: Hx Diabetes Mellitus Type 2, Hx Hypothyroidism - on meds. Denies: Hx Graves' Disease, Hx Hyperthyroidism Renal/ Medical History: Denies: Hx Benign Prostatic Hyperplasia, Hx End Stage Renal Disease, Hx Peritoneal Dialysis Malignancy Medical History: Denies Hx Lung Cancer GI Medical History: Reports: Hx Cirrhosis, Hx Gastroesophageal Reflux Disease - mild. Denies: Hx Crohn's Disease, Hx Hiatal Hernia, Hx Irritable Bowel, Hx Liver Failure, Hx Pancreatitis, Hx Ulcer Musculoskeltal Medical History: Reports Hx Arthritis, Denies Hx Fibromyalgia, Denies Hx Muscular Dystrophy Psychiatric Medical History: Reports: Hx Depression Traumatic Medical History: Denies: Hx Fractures Past Surgical History: Reports: Hx Cholecystectomy, Hx Orthopedic Surgery - Lt BKA. Denies: Hx Appendectomy, Hx Bowel Surgery, Hx Colostomy, Hx Coronary Artery Bypass Graft, Hx Gastric Bypass Surgery, Hx Herniorrhaphy, Hx Pacemaker, Hx Tonsillectomy - Immunizations Hx Diphtheria, Pertussis, Tetanus Vaccination: Yes Influenza Administration Date for 12/2016 - 05/2017 Season: 01/26/17 Physical Exam - Vital signs Vitals: Temp Pulse Resp BP Pulse Ox 98.1 F 86 16 133/46 H 97 01/16/18 15:45 01/16/18 15:45 01/16/18 15:45 01/16/18 15:45 01/16/18 15:45 Course - Vital Signs Vital signs: Temp Pulse Resp BP Pulse Ox 98.1 F 86 16 133/46 H 97 01/16/18 15:45 01/16/18 15:45 01/16/18 15:45 01/16/18 15:45 01/16/18 15:45 Doctor's Discharge - Discharge Referrals: JATINDER MENDEZ DO [Primary Care Provider] - Follow up as needed
[2018-01-16 18:56] LABS: ABSOLUTE EOSINOPHILS # (AUTO) 0.1 10^3/uL (0.0-0.6); ABSOLUTE LYMPHOCYTES (AUTO) 0.6 10^3/uL (0.5-4.7); ABSOLUTE MONOCYTES (AUTO) 0.3 10^3/uL (0.1-1.4); ABSOLUTE NEUT (AUTO) 5.5 10^3/uL (1.7-8.2); BASOPHILS % (AUTO) 0.3 % (0-2); EOSINOPHILS % (AUTO) 1.9 % (0-6); HEMATOCRIT 23.5 % (37.9-51.0); LYMPHOCYTES % (AUTO) 9.8 % (13-45); MEAN CORPUSCULAR HEMOGLOBIN 30.3 pg (27.0-33.4); MEAN CORPUSCULAR HGB CONC 30.9 g/dL (32.0-36.0); MEAN CORPUSCULAR VOLUME 98 fl (80-97); MONOCYTES % (AUTO) 4.2 % (3-13); PLATELET COUNT 178 10^3/uL (150-450); RED CELL DISTRIBUTION WIDTH 21.1 % (11.5-14.0); SEGMENTED NEUTROPHILS % (AUTO) 83.8 % (42-78); TOTAL CELLS COUNTED % (AUTO) 100 %; WHITE BLOOD COUNT 6.5 10^3/uL (4.0-10.5)
[2018-01-16 18:57] LABS: INTERNATIONAL RATION (INR) 1.13; PROTHROMBIN TIME 15.1 SEC (11.4-15.4)
[2018-01-16 19:00] LABS: HEMOGLOBIN 7.3 g/dL (13.5-17.0)
--- NOTE | 2018-01-16 19:00 | ER Document Report ---
ED General - General Chief Complaint: Abnormal Lab Results Stated Complaint: ABNORMAL LABS Time Seen by Provider: 01/16/18 16:59 Mode of Arrival: Ambulatory Information source: Patient TRAVEL OUTSIDE OF THE [place] IN LAST 30 DAYS: No - HPI Notes: Patient is a 62-year-old male with hepatitis C, diabetes mellitus that presents to the emergency department for chief complaint of nausea, vomiting, low hemoglobin. Patient is being treated for hepatitis C, and they have been monitoring his blood counts, about a week ago was 6.9 for his hemoglobin, and it dropped to 5.0 this Tuesday, has been lightheaded, but has not had syncopal episodes. Blood work was drawn at his regular practitioner's office. Patient reports that he had abdominal pain yesterday and then had vomiting after taking a oral laxative without obvious blood. No melena or hematemesis. Patient reports he was on Ribaflavin and Epclusa for his Hep C, but the Ribaflavin was discontinued 10 d ago due to thrombocytopenia. No history of irritable bowel or previous transfusions or GI bleed. The patient does have an incisional hernia around the umbilical region from previous cholecystectomy in the past. Patient reports mild hemorrhoidal bleeding that he is noted that is bright red but only after a bowel movement and is extremely minimal. History of opiate dependence and chronic back pain and previous bowel obstruction and ascites. No chest pain or cough. No anticoagulant use. - Related Data Allergies/Adverse Reactions: acetaminophen [From Darvocet-N 100] Allergy (Mild, Verified 10/17/17 12:51) Generalized Itching Penicillins Allergy (Mild, Verified 10/17/17 12:51) Generalized Itching propoxyphene napsylate [From Darvocet-N 100] Allergy (Mild, Verified 10/17/17 12 :51) Generalized Itching Past Medical History - General Information source: Patient - Social History Smoking Status: Former Smoker Chew tobacco use (# tins/day): No Frequency of alcohol use: None Drug Abuse: None Lives with: Family Family History: Reviewed & Not Pertinent Patient has suicidal ideation: No Patient has homicidal ideation: No - Past Medical History Cardiac Medical History: Reports: Hx Hypercholesterolemia Denies: Hx Atrial Fibrillation, Hx Congestive Heart Failure, Hx Coronary Artery Disease, Hx Heart Attack, Hx Hypertension, Hx Peripheral Vascular Disease , Hx Pulmonary Embolism, Hx Heart Murmur Pulmonary Medical History: Reports: Hx COPD - ON MEDICATION Denies: Hx Asthma, Hx Bronchitis, Hx Pneumonia, Hx Respiratory Failure, Hx Sleep Apnea, Hx Tuberculosis Neurological Medical History: Denies: Hx Cerebrovascular Accident, Hx Seizures Endocrine Medical History: Reports: Hx Diabetes Mellitus Type 2, Hx Hypothyroidism - on meds. Denies: Hx Graves' Disease, Hx Hyperthyroidism Renal/ Medical History: Denies: Hx Benign Prostatic Hyperplasia, Hx End Stage Renal Disease, Hx Peritoneal Dialysis Malignancy Medical History: Denies Hx Lung Cancer GI Medical History: Reports: Hx Cirrhosis, Hx Gastroesophageal Reflux Disease - mild. Denies: Hx Crohn's Disease, Hx Hiatal Hernia, Hx Irritable Bowel, Hx Liver Failure, Hx Pancreatitis, Hx Ulcer Musculoskeletal Medical History: Reports Hx Arthritis, Denies Hx Fibromyalgia, Denies Hx Muscular Dystrophy Psychiatric Medical History: Reports: Hx Depression Traumatic Medical History: Denies: Hx Fractures Past Surgical History: Reports: Hx Cholecystectomy, Hx Orthopedic Surgery - Lt BKA. Denies: Hx Appendectomy, Hx Bowel Surgery, Hx Colostomy, Hx Coronary Artery Bypass Graft, Hx Gastric Bypass Surgery, Hx Herniorrhaphy, Hx Pacemaker, Hx Tonsillectomy - Immunizations Hx Diphtheria, Pertussis, Tetanus Vaccination: Yes Hx Pneumococcal Vaccination: 02/07/13 Review of Systems - Review of Systems -: Yes All other systems reviewed and negative Physical Exam - Vital signs Vitals: Temp Pulse Resp BP Pulse Ox 98.1 F 86 16 133/46 H 97 01/16/18 15:45 01/16/18 15:45 01/16/18 15:45 01/16/18 15:45 01/16/18 15:45 - Notes Notes: PHYSICAL EXAMINATION: GENERAL: Well-appearing, well-nourished and in no acute distress. HEAD: Atraumatic, normocephalic. EYES: Pupils equal round and reactive to light, extraocular movements intact, sclera anicteric, conjunctiva are somewhat pale. ENT: Nares patent, oropharynx clear without exudates. Moist mucous membranes. NECK: Normal range of motion, supple without lymphadenopathy LUNGS: Breath sounds clear to auscultation bilaterally and equal. No wheezes rales or rhonchi. HEART: Regular rate and rhythm without murmurs ABDOMEN: Soft, nontender, nondistended abdomen. No guarding, no rebound. No masses appreciated. Obese with periumbilical hernia that is easily reduced. No gross fluid wave. Rectal is very minimally heme positive but there was no gross melena or other abnormality. Minimal if any stool noted in the vault. Musculoskeletal: Normal range of motion. No cyanosis. 2+ lower extremity edema on the right with a BKA on the left. NEUROLOGICAL: Cranial nerves grossly intact. Normal speech, normal gait. Normal sensory, motor exams PSYCH: Normal mood, normal affect. SKIN: Warm, Dry, normal turgor, no rashes or lesions noted. No gross cellulitis or abscess. Course - Re-evaluation Re-evalutation: 01/16/18 19:16 Patient's hemoglobin was improved at 7.3, as compared to previous reported hemoglobin of 5.2 from 4 days ago. This shows relative improvement and no evidence for significant continued bleeding. Patient was given Pepcid by mouth for possible gastritis. The proton pump inhibitors are contraindicated when patient is taking Epclusa. Thrombocytopenia has resolved. 01/16/18 19:21 Vital signs stable and the patient is without complaint. He is given a copy of his lab studies to take with him. Most likely this was a reaction to the patient's ribavirin which has been discontinued, and now the patient is improved. No evidence for GI bleed. No evidence for renal insufficiency. 01/16/18 21:51 - Vital Signs Vital signs: Temp Pulse Resp BP Pulse Ox 98.1 F 86 18 122/78 95 01/16/18 15:45 01/16/18 15:45 01/16/18 21:00 01/16/18 21:00 01/16/18 21:00 - Laboratory Result Diagrams: 01/16/18 18:30 01/16/18 18:30 Laboratory results interpreted by me: 01/16/18 01/16/18 01/16/18 18:30 18:30 20:39 RBC 2.40 L Hgb 7.3 L Hct 23.5 L MCV 98 H MCHC 30.9 L RDW 21.1 H Seg Neutrophils % 83.8 H Lymphocytes % 9.8 L Carbon Dioxide 31 H BUN 26 H Est GFR (Non-Af Amer) 59 L Glucose 58 L ALT 12 L Urine Protein 100 H Urine Blood MODERATE H Ur Leukocyte Esterase TRACE H - EKG Interpretation by Nv EKG shows normal: Sinus rhythm Additional EKG results interpreted by me: 01/16/18 19:19 EKG as interpreted by me showed normal sinus rhythm heart rate of 83. There is no gross evidence for acute MS or ischemia. There is a single PVC noted. There is no significant changes compared to previous EKG reviewed from 05/01/17. Discharge - Discharge Clinical Impression: Hep C w/o coma, chronic Anemia Qualifiers: Anemia type: unspecified type Qualified Code(s): D64.9 - Anemia, unspecified Constipation Qualifiers: Constipation type: drug induced constipation Qualified Code(s): K59.03 - Drug induced constipation Condition: Stable Disposition: HOME, SELF-CARE Instructions: Constipation ([facility]) Additional Instructions: Drink plenty of fluids. Take miralax and magnesium citrate as needed for constipation. Referrals: JATINDER MENDEZ DO [Primary Care Provider] - Follow up as needed
[2018-01-16 19:09] LABS: ALANINE AMINOTRANSFERASE 12 U/L (21-72); ALBUMIN 3.5 g/dL (3.5-5.0); ALKALINE PHOSPHATASE 58 U/L (38-126); ANION GAP 8 (5-19); ASPARTATE AMINO TRANSFERASE 25 U/L (17-59); BILIRUBIN,DIRECT 0.3 mg/dL (0.0-0.4); BILIRUBIN,TOTAL 0.8 mg/dL (0.2-1.3); BLOOD UREA NITROGEN 26 mg/dL (7-20); CALCIUM 8.5 mg/dL (8.4-10.2); CARBON DIOXIDE 31 mmol/L (22-30); CHLORIDE 101 mmol/L (98-107); GLUCOSE 58 mg/dL (75-110); POTASSIUM 4.2 mmol/L (3.6-5.0); SODIUM 139.5 mmol/L (137-145); TOTAL PROTEIN 7.4 g/dL (6.3-8.2)
[2018-01-16] MEDS ORDERED: FAMOTIDINE 20 MG TABLET PO ONE (19:11)
[2018-01-16 21:07] LABS: APPEARANCE,URINE SLIGHTLY-CLOUDY; BILIRUBIN,URINE NEGATIVE (NEGATIVE); COLOR,URINE YELLOW; GLUCOSE, URINE NEGATIVE (NEGATIVE); KETONES,URINE NEGATIVE (NEGATIVE); LEUKOCYTE ESTERASE,URINE TRACE (NEGATIVE); NITRITE,URINE NEGATIVE (NEGATIVE); PROTEIN,URINE 100 mg/dL (NEGATIVE); URINE SPECIFIC GRAVITY 1.015; UROBILINOGEN,URINE NEGATIVE mg/dL (<2.0)
[2018-01-16 21:40] VITALS: BP 122/78
--- NOTE | 2018-01-16 23:17 | EKG REPORT ---
SEVERITY:- ABNORMAL ECG - SINUS RHYTHM PROBABLE INFERIOR INFARCT, OLD CONSIDER ANTERIOR INFARCT : Confirmed by: Greta Robb 16-Jan-2018 23:16:25
== END 2018-01-16 21:58 | disposition home or self-care (01) ==
LOC: ER 15:41
DX: B18.2 Chronic viral hepatitis C (principal); D64.9 Anemia, unspecified; K59.03 Drug induced constipation; Z90.49 Acquired absence of other specified parts of digestive tract; Z89.512 Acquired absence of left leg below knee
CPT/HCPCS: 36415; 80053; 81001; 82272; 83690; 85025; 85610; 86850; 86900; 86901; 93005; 93010; 99284

== ENCOUNTER 2018-01-20 08:40 | Day surgery (SDC) | payer MEDICAID ==
[2018-01-20] MEDS ORDERED: ALBUTEROL SULFATE 0.083% NEB 2.5 MG/3 ML AMPUL NEB ONE (09:33)
[2018-01-20 09:36] LABS: HEMATOCRIT 23.9 % (37.9-51.0); MEAN CORPUSCULAR HEMOGLOBIN 30.3 pg (27.0-33.4); MEAN CORPUSCULAR HGB CONC 30.9 g/dL (32.0-36.0); MEAN CORPUSCULAR VOLUME 98 fl (80-97); PLATELET COUNT 147 10^3/uL (150-450); RED BLOOD COUNT 2.43 10^6/uL (4.35-5.55); RED CELL DISTRIBUTION WIDTH 19.2 % (11.5-14.0); WHITE BLOOD COUNT 4.1 10^3/uL (4.0-10.5)
[2018-01-20 09:43] LABS: HEMOGLOBIN 7.4 g/dL (13.5-17.0)
[2018-01-20] MEDS ORDERED: PROPOFOL INJ 200 MG/20 ML VIAL IV ONE (10:42)
--- NOTE | 2018-01-20 11:05 | Operative Report ---
Operative Report DATE OF SURGERY: 01/20/18 Operative Report: The risks benefits and alternatives of the procedure explained to the patient in detail and informed consent is obtained.A GIF Olympus video scope was inserted into the patient's mouth and hypopharynx, the esophagus is identified intubated and insufflated, the scope was then advanced through the esophagus stomach and duodenum, retroflexion maneuver is done the esophagus stomach and first and second portions of the duodenum examined PREOPERATIVE DIAGNOSIS: Nausea vomiting POSTOPERATIVE DIAGNOSIS: Bile reflux. Gastritis status post biopsy rule out Helicobacter pylori. No gastric outlet obstruction seen. No ulcers visualized. No esophagitis OPERATION: EGD with biopsy SURGEON: MCKENZIE TSANG ANESTHESIA: LMAC TISSUE REMOVED OR ALTERED: As noted above. COMPLICATIONS: None. ESTIMATED BLOOD LOSS: None. INTRAOPERATIVE FINDINGS: As noted above. PROCEDURE: Patient tolerated the procedure well. No immediate postprocedure complications are noted. Patient discharged in good condition. Discharge date 01/20/2018. Discharge diet: Regular. Discharge activity: Regular. 2-3-week follow-up to discuss findings. Patient is instructed call the office or proceed to the emergency room should there be any further problems or questions. Wait on the pathology.
[2018-01-20 12:10] VITALS: BP 126/59
[2018-01-20] MEDS ORDERED: ONDANSETRON HCL INJ/PF 4 MG/2 ML SDV IV PRN (13:50)
== END 2018-01-20 12:15 | disposition home or self-care (01) ==
LOC: OROUT 08:40
PROVIDERS: ATTEND Internal Medicine Gastroenterology
DX: K29.70 Gastritis, unspecified, without bleeding (principal); K21.9 Gastro-esophageal reflux disease without esophagitis; E11.9 Type 2 diabetes mellitus without complications; D64.9 Anemia, unspecified; M79.7 Fibromyalgia; I10 Essential (primary) hypertension; J44.9 Chronic obstructive pulmonary disease, unspecified; I73.9 Peripheral vascular disease, unspecified; K70.31 Alcoholic cirrhosis of liver with ascites; B18.2 Chronic viral hepatitis C; Z79.4 Long term (current) use of insulin; Z79.899 Other long term (current) drug therapy; Z79.51 Long term (current) use of inhaled steroids; Z88.0 Allergy status to penicillin
CPT/HCPCS: 43239; 36415; 82962; 84132; 85027; 88342 ×2; 88305 ×2; 94640; J2704; 731

== ENCOUNTER 2018-02-12 00:40 | Emergency (ER) | payer MEDICAID ==
[2018-02-12] MEDS ORDERED: METOCLOPRAMIDE HCL INJ/PF 10 MG/2 ML SDV IV ONE (01:01)
[2018-02-12] MEDS ORDERED: FENTANYL CITRATE INJ/PF 100 MCG/2 ML AMPUL IV ONE (01:02)
[2018-02-12] MEDS ORDERED: ASPIRIN 325 MG TABLET PO ONE (01:36)
[2018-02-12 01:51] LABS: ALANINE AMINOTRANSFERASE 19 U/L (21-72); ALBUMIN 3.5 g/dL (3.5-5.0); ALCOHOL < 10 mg/dL (NONE DETECTED); ALKALINE PHOSPHATASE 81 U/L (38-126); ANION GAP 14 (5-19); ASPARTATE AMINO TRANSFERASE 27 U/L (17-59); BILIRUBIN,DIRECT 0.3 mg/dL (0.0-0.4); BILIRUBIN,TOTAL 0.6 mg/dL (0.2-1.3); BLOOD UREA NITROGEN 18 mg/dL (7-20); CALCIUM 8.7 mg/dL (8.4-10.2); CARBON DIOXIDE 28 mmol/L (22-30); CHLORIDE 101 mmol/L (98-107); GLUCOSE 203 mg/dL (75-110); LIPASE 54.4 U/L (23-300); POTASSIUM 3.5 mmol/L (3.6-5.0); SODIUM 143.4 mmol/L (137-145); TOTAL PROTEIN 7.4 g/dL (6.3-8.2)
[2018-02-12 02:00] LABS: ABSOLUTE LYMPHOCYTES (AUTO) 0.5 10^3/uL (0.5-4.7); ABSOLUTE MONOCYTES (AUTO) 0.1 10^3/uL (0.1-1.4); ABSOLUTE NEUT (AUTO) 3.5 10^3/uL (1.7-8.2); BASOPHILS % (AUTO) 0.8 % (0-2); EOSINOPHILS % (AUTO) 0.6 % (0-6); HEMATOCRIT 31.8 % (37.9-51.0); HEMOGLOBIN 10.3 g/dL (13.5-17.0); LYMPHOCYTES % (AUTO) 12.1 % (13-45); MEAN CORPUSCULAR HEMOGLOBIN 29.3 pg (27.0-33.4); MEAN CORPUSCULAR HGB CONC 32.5 g/dL (32.0-36.0); MONOCYTES % (AUTO) 3.5 % (3-13); PLATELET COUNT 123 10^3/uL (150-450); RED BLOOD COUNT 3.52 10^6/uL (4.35-5.55); RED CELL DISTRIBUTION WIDTH 14.4 % (11.5-14.0); TOTAL CELLS COUNTED % (AUTO) 100 %; WHITE BLOOD COUNT 4.2 10^3/uL (4.0-10.5)
--- NOTE | 2018-02-12 02:03 | RADIOLOGY REPORT (SQ) ---
EXAM DESCRIPTION: XR CHEST 1 VIEW COMPLETED DATE/TME: 02/12/2018 01:10 CLINICAL HISTORY: 62 years, Male, chest pain COMPARISON: 05/02/2017 chest x-ray NUMBER OF VIEWS: 1 TECHNIQUE: AP portable upright chest LIMITATIONS: None. FINDINGS: Cardiomegaly with atheromatous change of the thoracic aorta. No pneumothorax. Coarse chronic appearing interstitial changes bilaterally. No confluent airspace opacity. IMPRESSION: Cardiomegaly with chronic interstitial changes bilaterally 2010 [facility] [employer]- All Rights Reserved
[2018-02-12 02:10] LABS: MEAN CORPUSCULAR VOLUME 90 fl (80-97)
[2018-02-12 02:22] LABS: TROPONIN I 0.016 ng/mL
[2018-02-12] MEDS ORDERED: FUROSEMIDE INJ/PF 40 MG/4 ML SDV IV ONE (02:39)
--- NOTE | 2018-02-12 02:44 | ER Document Report ---
ED General - General Chief Complaint: Nausea/Vomiting Stated Complaint: ABDOMINAL PAIN Time Seen by Provider: 02/12/18 00:48 Mode of Arrival: Wheelchair Information source: Patient, Emergency Med Personnel TRAVEL OUTSIDE OF THE [place] IN LAST 30 DAYS: No - HPI Patient complains to provider of: nausea, vomiting, shortness of breath Onset: Other - 62-year-old male with a history of hepatitis C as well as diabetes mellitus and left lower extremity BKA requiring prosthesis that presents for evaluation of shortness of breath as well as nausea and vomiting in setting of having changed his recent acid reflux medication making it difficult for him to tolerate his normal water pill amoxicillin. He notes that he also feels as if his legs have been bloated up as well as his abdomen. He has had one episode like this in the past at which time they drained fluid off of his abdomen and it greatly improved his symptoms. Denies fevers or chills, did try Zofran at home to help with his symptoms and it only helped a little bit. - Related Data Allergies/Adverse Reactions: acetaminophen [From Darvocet-N 100] Allergy (Mild, Verified 01/19/18 09:31) Generalized Itching Penicillins Allergy (Mild, Verified 01/19/18 09:31) Generalized Itching propoxyphene napsylate [From Darvocet-N 100] Allergy (Mild, Verified 01/19/18 09 :31) Generalized Itching Past Medical History - General Information source: Patient - Social History Smoking Status: Never Smoker Frequency of alcohol use: None Family History: Reviewed & Not Pertinent Patient has suicidal ideation: No Patient has homicidal ideation: No - Past Medical History Cardiac Medical History: Reports: Hx Hypercholesterolemia Denies: Hx Atrial Fibrillation, Hx Congestive Heart Failure, Hx Coronary Artery Disease, Hx Heart Attack, Hx Hypertension, Hx Peripheral Vascular Disease , Hx Pulmonary Embolism, Hx Heart Murmur Pulmonary Medical History: Reports: Hx COPD - ON MEDICATION Denies: Hx Asthma, Hx Bronchitis, Hx Pneumonia, Hx Respiratory Failure, Hx Sleep Apnea, Hx Tuberculosis Neurological Medical History: Denies: Hx Cerebrovascular Accident, Hx Seizures Endocrine Medical History: Reports: Hx Diabetes Mellitus Type 2, Hx Hypothyroidism - on meds. Denies: Hx Graves' Disease, Hx Hyperthyroidism Renal/ Medical History: Denies: Hx Benign Prostatic Hyperplasia, Hx End Stage Renal Disease, Hx Peritoneal Dialysis Malignancy Medical History: Denies Hx Lung Cancer GI Medical History: Reports: Hx Cirrhosis, Hx Gastroesophageal Reflux Disease - mild. Denies: Hx Crohn's Disease, Hx Hiatal Hernia, Hx Irritable Bowel, Hx Liver Failure, Hx Pancreatitis, Hx Ulcer Musculoskeletal Medical History: Reports Hx Arthritis, Denies Hx Fibromyalgia, Denies Hx Muscular Dystrophy Psychiatric Medical History: Reports: Hx Depression Traumatic Medical History: Denies: Hx Fractures Past Surgical History: Reports: Hx Cholecystectomy, Hx Orthopedic Surgery - Lt BKA. Denies: Hx Appendectomy, Hx Bowel Surgery, Hx Colostomy, Hx Coronary Artery Bypass Graft, Hx Gastric Bypass Surgery, Hx Herniorrhaphy, Hx Pacemaker, Hx Tonsillectomy - Immunizations Hx Diphtheria, Pertussis, Tetanus Vaccination: Yes Hx Pneumococcal Vaccination: 02/07/13 Review of Systems - Review of Systems -: Yes All other systems reviewed and negative Physical Exam - General General appearance: Other - Chronically ill-appearing man In distress: Mild - HEENT Head: Normocephalic Eyes: Normal Conjunctiva: Normal Cornea: Normal Extraocular movements intact: Yes Eyelashes: Normal Pupils: PERRL - Respiratory Respiratory status: Tachypnea Chest status: Nontender Breath sounds: Other - Crackles in the inferior lung killian Chest palpation: Normal - Cardiovascular Rhythm: Regular Heart sounds: Normal auscultation Murmur: No - Abdominal Inspection: Obese Distension: Distended Tenderness: Other - Diffuse tender without any rebound or guarding Organomegaly: No organomegaly - Back Back: Normal - Extremities General upper extremity: Normal inspection, Nontender, Normal ROM, Normal strength General lower extremity: Other - BKA in the left lower extremity, wraps on the right lower extremity - Neurological Neuro grossly intact: Yes Cognition: Normal Orientation: AAOx4 [place] Coma Scale Eye Opening: Spontaneous [place] Coma Scale Verbal: Oriented [place] Coma Scale Motor: Obeys Commands [place] Coma Scale Total: 15 Speech: Normal Cranial nerves: Normal Cerebellar coordination: Normal Motor strength normal: LUE, RUAndrei - Psychological Associated symptoms: Normal affect Course - Re-evaluation Re-evalutation: 02/12/18 04:23 62-year-old man who presents for evaluation of recurrent nausea as well as vomiting and shortness of breath. On examination he is actively dry heaving, intermittently hypoxic to the mid 80s while on 2 L of oxygen. While at rest he oxygenates in the 93% range on 2 L nasal cannula. His initial EKG is concerning as he does demonstrate multiple PVCs and some ectopy, he also demonstrates ST segment depressions through the chest leads which are new in comparison to previous. He is not having active chest pain at this time however I believe this is unlikely to represent an acute NH. He does however have some risk factors as such we will obtain troponin, BNP, chemistry as well as count. We will obtain a chest x-ray in addition. Patient's troponin is within normal range initially, his BNP is elevated, he did miss his diuretic today and does note that he seems more fluffy than previously. We will administer 40 mg IV Lasix. We will repeat EKG and repeat troponin. Patient has relatively reassuring labs otherwise with no other obvious cause for his nausea and vomiting. With the administration of diuretic has begun to urinate, thus far he is urinated approximately 1 L notes that he does feel as if he is starting to feel better and breathe easier. He was able to come off of nasal cannula at this time. Because of his ectopy as well as severity of symptoms believe he would benefit from observation for diuresis and management. We will contact hospitalist for evaluation of this gentleman and consideration of possible paracentesis as well. - Laboratory Result Diagrams: 02/12/18 01:50 02/12/18 01:11 Laboratory results interpreted by me: 02/12/18 02/12/18 02/12/18 01:11 01:11 01:50 RBC 3.52 L Hgb 10.3 L Hct 31.8 L RDW 14.4 H Plt Count 123 L Seg Neutrophils % 83.0 H Lymphocytes % 12.1 L Potassium 3.5 L Glucose 203 H ALT 19 L NT-Pro-B Natriuret Pep 1490 H Discharge - Discharge Clinical Impression: Vomiting Qualifiers: Vomiting type: unspecified Vomiting Intractability: non-intractable Nausea presence: with nausea Qualified Code(s): R11.2 - Nausea with vomiting, unspecified Abdominal pain Qualifiers: Abdominal location: unspecified location Qualified Code(s): R10.9 - Unspecified abdominal pain Dyspnea Qualifiers: Dyspnea type: unspecified Qualified Code(s): R06.00 - Dyspnea, unspecified Ascites Qualifiers: Ascites type: other type Qualified Code(s): R18.8 - Other ascites Condition: Stable Disposition: ADMITTED INPATIENT Admitting Provider: Hospitalist Unit Admitted: Telemetry Referrals: JATINDER MENDEZ DO [Primary Care Provider] - Follow up as needed
[2018-02-12 06:25] VITALS: BP 135/67
--- NOTE | 2018-02-12 10:37 | EKG REPORT ---
SEVERITY:- ABNORMAL ECG - SINUS TACHYCARDIA VENTRICULAR PREMATURE COMPLEXES in BIGEMINI PATTERN CONSIDER INFERIOR INFARCT BORDERLINE T ABNORMALITIES, LATERAL LEADS : Confirmed by: Greta Robb 12-Feb-2018 10:36:18
--- NOTE | 2018-02-12 10:37 | EKG REPORT ---
SEVERITY:- ABNORMAL ECG - SINUS TACHYCARDIA PAIRED VENTRICULAR PREMATURE COMPLEXES IN BIGEMINI PATTERN CONSIDER INFERIOR INFARCT : Confirmed by: Greta Robb 12-Feb-2018 10:36:51
== END 2018-02-12 06:29 | disposition home or self-care (01) ==
LOC: ER 00:40 → EH 04:33 → UNDOADMIN 04:33 → ER 06:29
DX: R18.8 Other ascites (principal); T50.2X6A Underdosing of carbonic-anhydrase inhibitors, benzothiadiazides and other diuretics, initial encounter; Z91.128 Patient's intentional underdosing of medication regimen for other reason; Z91.14 Patient's other noncompliance with medication regimen; K21.9 Gastro-esophageal reflux disease without esophagitis; R11.2 Nausea with vomiting, unspecified; E11.9 Type 2 diabetes mellitus without complications; R10.9 Unspecified abdominal pain; J44.9 Chronic obstructive pulmonary disease, unspecified; R06.02 Shortness of breath; I49.3 Ventricular premature depolarization
CPT/HCPCS: 93005; 99284; 96374; 96375; 36415; 82962; 80307; 83605; 83690; 85025; 80053; 84484; 83880; 71045; 93010; J3010; J1940; J2765

== ENCOUNTER 2018-02-12 07:49 | Inpatient (IN) | payer MEDICAID ==
--- NOTE | 2018-02-12 08:18 | ER Document Report ---
ED General - General Chief Complaint: Shortness Of Breath Stated Complaint: SHORT OF BREATH Time Seen by Provider: 02/12/18 08:13 TRAVEL OUTSIDE OF THE [place] IN LAST 30 DAYS: No - HPI Notes: Patient is a 62-year-old male with a history of COPD, chronic hep C cirrhosis, peripheral vascular disease, insulin-dependent diabetes (BKA), hypertension, hyperlipidemia, chronic pain on methadone who presents to the ED complaining of nausea, dry heaving, intermittent left/epigastric abdominal pain, shortness of breath that began last evening. Patient was evaluated late last night/early this morning and was found to be probable fluid overload with an otherwise unremarkable workup and admission was encouraged at that time and was accepted by the nighttime hospitalist. Patient started feeling better with the IV Lasix and signed out AMA. Patient states that he made it to the lobby, but never left the lobby all night and his symptoms started coming back so he wanted to get reevaluated and admitted to the hospital. He has no other concerns or complaints. He has been having BM's daily. Denies any headache, fever, URI, sore throat, chest pain, palpitations, syncope, cough, diarrhea, urinary retention, dysuria, hematuria, or rash. - Related Data Allergies/Adverse Reactions: acetaminophen [From Darvocet-N 100] Allergy (Mild, Verified 02/12/18 07:52) Generalized Itching Penicillins Allergy (Mild, Verified 02/12/18 07:52) Generalized Itching propoxyphene napsylate [From Darvocet-N 100] Allergy (Mild, Verified 02/12/18 07 :52) Generalized Itching Past Medical History - Social History Smoking Status: Current Every Day Smoker Family History: Reviewed & Not Pertinent Patient has suicidal ideation: No Patient has homicidal ideation: No - Past Medical History Cardiac Medical History: Reports: Hx Hypercholesterolemia Denies: Hx Atrial Fibrillation, Hx Congestive Heart Failure, Hx Coronary Artery Disease, Hx Heart Attack, Hx Hypertension, Hx Peripheral Vascular Disease , Hx Pulmonary Embolism, Hx Heart Murmur Pulmonary Medical History: Reports: Hx COPD - ON MEDICATION Denies: Hx Asthma, Hx Bronchitis, Hx Pneumonia, Hx Respiratory Failure, Hx Sleep Apnea, Hx Tuberculosis Neurological Medical History: Denies: Hx Cerebrovascular Accident, Hx Seizures Endocrine Medical History: Reports: Hx Diabetes Mellitus Type 2, Hx Hypothyroidism - on meds. Denies: Hx Graves' Disease, Hx Hyperthyroidism Renal/ Medical History: Denies: Hx Benign Prostatic Hyperplasia, Hx End Stage Renal Disease, Hx Peritoneal Dialysis Malignancy Medical History: Denies Hx Lung Cancer GI Medical History: Reports: Hx Cirrhosis, Hx Gastroesophageal Reflux Disease - mild. Denies: Hx Crohn's Disease, Hx Hiatal Hernia, Hx Irritable Bowel, Hx Liver Failure, Hx Pancreatitis, Hx Ulcer Musculoskeletal Medical History: Reports Hx Arthritis, Denies Hx Fibromyalgia, Denies Hx Muscular Dystrophy Psychiatric Medical History: Reports: Hx Depression Traumatic Medical History: Denies: Hx Fractures Past Surgical History: Reports: Hx Cholecystectomy, Hx Orthopedic Surgery - Lt BKA. Denies: Hx Appendectomy, Hx Bowel Surgery, Hx Colostomy, Hx Coronary Artery Bypass Graft, Hx Gastric Bypass Surgery, Hx Herniorrhaphy, Hx Pacemaker, Hx Tonsillectomy - Immunizations Hx Diphtheria, Pertussis, Tetanus Vaccination: Yes Hx Pneumococcal Vaccination: 02/07/13 Review of Systems - Review of Systems -: Yes All other systems reviewed and negative Physical Exam - Vital signs Vitals: Temp Pulse Resp BP Pulse Ox 98.2 F 90 16 176/80 H 97 02/12/18 07:54 02/12/18 07:54 02/12/18 07:54 02/12/18 07:54 02/12/18 07:54 - Notes Notes: PHYSICAL EXAMINATION: GENERAL: Well-appearing, well-nourished and in no acute distress. HEAD: Atraumatic, normocephalic. EYES: Pupils equal round and reactive to light, extraocular movements intact, sclera anicteric, conjunctiva are normal. ENT: Nares patent and without discharge. oropharynx clear without exudates. No tonsilar hypertrophy or erythema. Moist mucous membranes. NECK: Normal range of motion, supple without lymphadenopathy LUNGS: slightly diminished b/l. No wheezes or rhonchi. HEART: Regular rate and rhythm without murmurs, rubs, gallops. ABDOMEN: Soft, distended abdomen. No guarding, no rebound. No masses appreciated. Normal bowel sounds present. No CVA tenderness bilaterally. + mild epigastric tenderness. Musculoskeletal: FROM to passive/active. Strength 5+/5. Extremities: BKA in the left lower extremity, wraps on the right lower extremity. Peripheral pulses 1+. Capillary refill less than 3 seconds. NEUROLOGICAL: Cranial nerves grossly intact. Normal speech, normal gait. Normal sensory, motor exams PSYCH: Normal mood, normal affect. SKIN: Warm, Dry, normal turgor, no rashes or lesions noted. Course - Re-evaluation Re-evalutation: 02/12/18 08:20 We will check a KUB and plan for admission to the hospital for suspected fluid overload/management, possible paracentesis. Reviewed with Dr. Ramos who is in agreement. Pt had labs performed early this morning which were otherwise unremarkable aside from elevated BNP. 02/12/18 09:10 KUB shows constipation, no acute obstruction. Reviewed with Dr. Ramos who agrees with admission. Vitals currently acceptable. Reviewed with Dr. Odom, hospitalist, who accepted pt for admit. - Vital Signs Vital signs: Temp Pulse Resp BP Pulse Ox 98.2 F 90 16 176/80 H 97 02/12/18 07:54 02/12/18 07:54 02/12/18 07:54 02/12/18 07:54 02/12/18 07:54 Discharge - Discharge Clinical Impression: CHF (congestive heart failure) Qualifiers: Heart failure type: unspecified Heart failure chronicity: acute Qualified Code( s): I50.9 - Heart failure, unspecified Constipation Qualifiers: Constipation type: drug induced constipation Qualified Code(s): K59.03 - Drug induced constipation Condition: Stable Disposition: ADMITTED INPATIENT Admitting Provider: Hospitalist - Dr. Odom Unit Admitted: Medical Floor Referrals: JATINDER MENDEZ DO [Primary Care Provider] - Follow up as needed
--- NOTE | 2018-02-12 09:04 | RADIOLOGY REPORT (SQ) ---
EXAM DESCRIPTION: KUB/ABDOMEN (SINGLE VIEW) COMPLETED DATE/TIME: 02/12/2018 8:55 am REASON FOR STUDY: abd pain COMPARISON: None. NUMBER OF VIEWS: One view. TECHNIQUE: Supine radiographic image of the abdomen acquired. LIMITATIONS: Incomplete coverage of the abdomen due to the large body habitus. FINDINGS: BOWEL GAS PATTERN: Normal nonobstructive bowel gas pattern. No dilated loops. Moderate bu rden of stool in the right colon. CALCIFICATIONS: No suspicious calcifications. SOFT TISSUES: No gross mass or suggestion of organomegaly. HARDWARE: None in the abdomen. BONES: No acute fracture. No worrisome bone lesions. OTHER: No other significant finding. IMPRESSION: There is incomplete coverage of the abdomen due to large body habitus. Within this limi tation, nonobstructive pattern of bowel gas with gas and stool present to the rectum. Moderate burde n of stool in the right colon. No obvious free air in the abdomen on incomplete supine radiographs. TECHNICAL DOCUMENTATION: JOB ID: [id number] 2015 [employer]- All Rights Reserved Reading location - IP/workstation name: [email or web address]
[2018-02-12] MEDS ORDERED: ONDANSETRON 4 MG TAB.RAPDIS PO PRN (10:31)
[2018-02-12] MEDS ORDERED: ZOLPIDEM TARTRATE 5 MG TABLET PO PRN (10:31)
[2018-02-12] MEDS ORDERED: MAGNESIUM HYDROXIDE SUSP 30 ML UDCUP PO PRN (10:31)
[2018-02-12] MEDS ORDERED: ALBUTEROL SULFATE 0.083% NEB 2.5 MG/3 ML AMPUL NEB PRN (10:31)
[2018-02-12] MEDS ORDERED: RIBAVIRIN 600 MG PO SCH (11:00)
[2018-02-12] MEDS: ONDANSETRON HCL INJ/PF 4 MG/2 ML SDV IV PRN ×2 (11:59→19:35)
[2018-02-12] MEDS ORDERED: TORSEMIDE 20 MG TABLET PO SCH (12:00)
[2018-02-12] MEDS ORDERED: METHADONE HCL 1 MG/ML 30 ML BOTTLE PO SCH (12:00)
[2018-02-12] MEDS ORDERED: ENOXAPARIN SODIUM INJ 40 MG/0.4 ML DISP.SYRIN SUBCUT SCH (12:00)
[2018-02-12] MEDS: LEVALBUTEROL HCL NEB 1.25 MG/3 ML AMPUL NEB SCH ×2 (12:15→15:21)
[2018-02-12] MEDS: POTASSIUM CHLORIDE 10 MEQ CAPSULE.ER PO SCH ×3 (13:28→22:49)
[2018-02-12] MEDS: TAMSULOSIN HCL 0.4 MG CAP.SR.24H PO SCH (13:29)
[2018-02-12] MEDS ORDERED: METHADONE HCL 10 MG TABLET PO SCH (14:00)
--- NOTE | 2018-02-12 15:13 | PDOC H&P ---
History of Present Illness Admission Date/PCP: 02/12/18 09:26 JATINDER MENDEZ DO Patient complains of: Dyspnea History of Present Illness: ART SORENSEN is a 62 year old male who originally presented to the emergency room on the evening of 02/11/2018 with a 2-day history of increased abdominal pressure/bloating accompanied by moderate to severe upper abdominal pain, dry heaves, nausea and dyspnea. He complains that his dyspnea had become worse which is what brought him to the emergency room and if the time that he arrived in the ER his dyspnea was severe. It improved after receiving IV Lasix which caused him to avoid numerous times and he could feel the swelling in his stomach go down which made it easier for him to breathe. He was originally going to be admitted but then decided to go home however he did not get a ride home and spent the night the emergency room waiting area and subsequently upon arising this morning noted that he was feeling short of breath again and he thought he would just go back in the emergency room and get admitted to get his breathing fixed again. He has a history of chronic hepatitis C as well as related hepatic cirrhosis. With similar prior episodes, he has required paracentesis to remove ascites to allow him to be able to breathe. He relates his onset of symptoms to taking 2 doses of amoxicillin clavulanic acid 875/125 a couple of days ago. He states that he is allergic to penicillin and after taking the first dose he did not feel well after taking the second as he began having the dry heaves and nausea and then he noticed increasing bloating in his abdomen and the dyspnea resulting after that. He was seen in the emergency room he was found to have fluid overload with edema present in his right lower extremity (has left BKA) and bibasilar rales on chest exam. These findings were again present this morning and the emergency room physician felt that the patient should be admitted for further evaluation and treatment of his fluid overload status. His potassium was noted to be only 3.5 and his BNP pro was 1490. Patient was subsequently admitted for diuretic therapy and potassium supplementation and repletion. Past Medical History Cardiac Medical History: Reports: Hyperlipidema Denies: Atrial Fibrillation, Congestive Heart Failure, Coronary Artery Disease, Myocardial Infarction, Hypertension, Peripheral Vascular Disease, Pulmonary Embolism, Heart Murmur Pulmonary Medical History: Reports: Chronic Obstructive Pulmonary Disease (COPD ) - ON MEDICATION Denies: Asthma, Bronchitis, Pneumonia, Respiratory Failure, Sleep Apnea, Tuberculosis EENT Medical History: Reports: None Neurological Medical History: Reports: None Denies: Seizures Endocrine Medical History: Reports: Diabetes Mellitus Type 2, Hypothyroidism - on meds, Obesity Denies: Diabetes Mellitus Type 1, Hyperthyroidism Renal/ Medical History: Denies: Chronic Kidney Disease, End Stage Renal Disease, Nephrolithiasis Malignancy Medical History: Denies: Lung Cancer, Pancreatic Cancer, Renal (Kidney) Cancer GI Medical History: Reports: Cirrhosis, Gastroesophageal Reflux Disease - mild, Hepatitis - Chronic hepatitis C Denies: Crohn's Disease, Hiatal Hernia Musculoskeltal Medical History: Reports: Arthritis Denies: Fibromyalgia Skin Medical History: Denies: Eczema, Psoriasis Psychiatric Medical History: Reports: Depression Traumatic Medical History: Reports: None Hematology: Denies: Anemia, Bleeding Tendencies Infectious Medical History: Reports: Hepatitis C Past Surgical History Past Surgical History: Reports: Cholecystectomy, Orthopedic Surgery - Lt BKA Denies: Appendectomy, Colostomy, Coronary Artery Bypass Graft, Gastric Bypass Surgery, Herniorrhaphy, Pacemaker, Tonsillectomy Social History Information Source: Patient Lives with: Spouse/Significant other Smoking Status: Current Every Day Smoker Frequency of Alcohol Use: None Hx Recreational Drug Use: No Hx Prescription Drug Abuse: No - Advance Directive Resuscitation Status: Full Code Surrogate healthcare decision maker:: Significant other: Emperatriz Price Family History Family History: DM, Hyperlipidemia, Hypertension Parental Family History Reviewed: Yes Children Family History Reviewed: NA Sibling(s) Family History Reviewed.: Yes Medication/Allergy Home Medications: Furosemide [Lasix 40 mg Tablet] 40 mg PO BID 10/17/17 Insulin Aspart [Novolog Flexpen] 0 unit SQ .SLIDING SCALE 10/17/17 Insulin Glargine,Hum.rec.anlog [Lantus] 35 unit SQ QHS 10/17/17 Methadone HCl 20 mg PO BID 10/17/17 Oxycodone HCl 15 mg PO Q4HP PRN 10/17/17 Tamsulosin HCl 0.4 mg PO DAILY 10/17/17 Tiotropium [place] [Spiriva Respimat] 2 puff IH DAILY 10/17/17 Sofosbuvir/Velpatasvir [Epclusa 400 mg-100 mg Tablet] 1 each PO DAILY 01/20/18 Methadone HCl [Dolophine 10 Mg Tablet] 10 mg PO QHS 02/12/18 Ondansetron [Zofran Odt 4 mg Tablet] 4 mg PO Q12H 02/12/18 Allergies/Adverse Reactions: Penicillins Allergy (Mild, Verified 02/12/18 07:52) Generalized Itching propoxyphene napsylate [From Darvocet-N 100] Allergy (Mild, Verified 02/12/18 07 :52) Generalized Itching Review of Systems Constitutional: ABSENT: chills, fever(s) Eyes: ABSENT: visual disturbances, other - Ocular pain Ears: ABSENT: hearing changes, other - Ear pain Nose, Mouth, and Throat: ABSENT: mouth pain, sore throat Cardiovascular: PRESENT: dyspnea on exertion, edema - Right lower extremity, orthropnea. ABSENT: chest pain, palpitations Respiratory: PRESENT: dyspnea. ABSENT: cough Gastrointestinal: PRESENT: abdominal pain, bloating, nausea, other - Dry heaves. ABSENT: diarrhea, vomiting Genitourinary: ABSENT: dysuria, hematuria Musculoskeletal: ABSENT: deformity Integumentary: PRESENT: pruritus - Right lower extremity, rash - Right lower extremity Neurological: ABSENT: confusion, convulsions, memory loss, tremor(s) Psychiatric: ABSENT: anxiety, depression Endocrine: ABSENT: cold intolerance, heat intolerance Hematologic/Lymphatic: ABSENT: easy bleeding, easy bruising Allergic/Immunologic: ABSENT: seasonal rhinorrhea, other - Insect bite allergy Physical Exam Vital Signs: Temp Pulse Resp BP Pulse Ox 98.2 F 90 18 146/64 H 97 02/12/18 07:54 02/12/18 07:54 02/12/18 10:53 02/12/18 10:53 02/12/18 10:53 General appearance: PRESENT: no acute distress, cooperative, disheveled, morbidly obese Head exam: PRESENT: atraumatic, normocephalic Eye exam: PRESENT: conjunctiva pink, EOMI. ABSENT: scleral icterus Ear exam: PRESENT: normal external ear exam. ABSENT: bleeding, drainage Mouth exam: PRESENT: neck supple, tongue midline Neck exam: ABSENT: JVD, thyromegaly, tracheal deviation Respiratory exam: PRESENT: decreased breath sounds - Minimally decreased breath sounds generalized in all killian., symmetrical, unlabored, wheezes - Mild end expiratory wheezes in all killian. ABSENT: rales, rhonchi Cardiovascular exam: PRESENT: RRR. ABSENT: clicks, gallop, rubs Pulses: PRESENT: normal radial pulses, normal dorsalis pedis pul - Right Vascular exam: PRESENT: normal capillary refill. ABSENT: pallor GI/Abdominal exam: PRESENT: distended - Mildly distended, normal bowel sounds, soft, tenderness - Mild epigastric and left upper quadrant tenderness noted on palpation. ABSENT: ascites, Pierre's sign, rebound, rigid Rectal exam: PRESENT: deferred Extremities exam: PRESENT: +2 edema - Right lower extremity pretibial and foot. ABSENT: joint swelling Musculoskeletal exam: PRESENT: other - Left lower extremity BKA. ABSENT: dislocation Neurological exam: PRESENT: alert, oriented to person, oriented to place, oriented to time, oriented to situation. ABSENT: CN II-XII grossly intact, motor sensory deficit Psychiatric exam: PRESENT: appropriate affect, normal mood Skin exam: ABSENT: jaundice, rash, urticaria Results Impressions: KUB X-Ray 02/12/18 08:14 IMPRESSION: There is incomplete coverage of the abdomen due to large body habitus. Within this limitation, nonobstructive pattern of bowel gas with gas and stool present to the rectum. Moderate burden of stool in the right colon. No obvious free air in the abdomen on incomplete supine radiographs. Assessment & Plan - Diagnosis (1) CHF (congestive heart failure) Qualifiers: Heart failure chronicity: unspecified Is this a current diagnosis for this admission?: Yes Plan: Patient has significant fluid overload evidenced by his edema and elevated BNP pro. He is to be treated with Bumex 2 mg IV every 6 hours x4 doses and have serial basic metabolic profiles obtained every 6 hours following those administrations. He will be initiated on therapy with lisinopril 20 mg p.o. daily and metoprolol succinate 50 mg p.o. daily. (2) Retching Is this a current diagnosis for this admission?: Yes Plan: Patient admits that his retching is better but he did receive Zofran in the emergency room. His therapy will be continued with Zofran 4 mg sublingually or IV every 4 hours as needed nausea or vomiting. (3) Abdominal pain Qualifiers: Abdominal location: unspecified location Qualified Code(s): R10.9 - Unspecified abdominal pain Is this a current diagnosis for this admission?: Yes Plan: Patient admits that his abdominal pain is better after receiving Lasix IV and torsemide p.o. during his ER course. We will observe his abdominal pain over the course of his treatment for improvement. (4) Chronic pain syndrome Is this a current diagnosis for this admission?: Yes Plan: Patient is a chronic pain patient and has been on a chronic pain regiment utilizing methadone 20 mg twice daily and 10 mg at bedtime for more than a year. He also uses oxycodone 15 mg p.o. every 4 hours as needed breakthrough pain. I have elected to continue patient on his chronic methadone dosage, however, his oxycodone will not be provided, instead will provide morphine sulfate 10 mg IV every 4 hours as needed breakthrough pain. (5) Morbid (severe) obesity due to excess calories Is this a current diagnosis for this admission?: Yes Plan: Patient has significant obesity which would be best addressed by dietary measures. I have broached the subject patient does not seem to be interested despite style modification and educational attempts. (6) Elevated troponin I level Is this a current diagnosis for this admission?: Yes Plan: Serial troponins and cardiac enzymes will be obtained and a cardiogram will also be obtained. Serial EKGs will be performed evaluation for possible non- STEMI will be determined based on the findings of the ordered tests. Cardiology consultation and possible stress testing if appropriate. - Time Time Spent: Greater than 70 Minutes Smoking Cessation Education: 3 to 10 minutes - Patient not interested in discontinuation of smoking, nicotine patch will be made available as desired throughout his hospital course. Counseling on cessation was provided. Medications reviewed and adjusted accordingly: Yes Anticipated discharge: Home with Homehealth - Inpatient Certification Medical Necessity: Significant Comorbidiites Make Outpatient Treatment Too Risky , Need Close Monitoring Due to Risk of Patient Decompensation, Need for Pain Control, Risk of Complication if Not Cared For in Hospital
[2018-02-12] MEDS: MORPHINE SULFATE 10 MG/ML INJ IV PRN ×2 (15:47→19:35)
[2018-02-12] MEDS: METOPROLOL SUCCINATE 50 MG TAB.SR.24H PO SCH (15:48)
[2018-02-12] MEDS: LISINOPRIL 10 MG TABLET PO SCH (15:48)
[2018-02-12] MEDS: BUMETANIDE INJ/PF 1 MG/4 ML SDV IV SCH ×2 (15:49→22:49)
[2018-02-12] MEDS: LACTULOSE SYRUP 20 GM/30 ML UDCUP PO SCH ×2 (18:00→23:17)
[2018-02-12] MEDS: DOCUSATE SODIUM 100 MG CAPSULE PO SCH (18:00)
[2018-02-12] MEDS: METHADONE HCL 10 MG TABLET PO SCH ×2 (18:02→22:50)
[2018-02-12] MEDS: LANSOPRAZOLE 30 MG TAB.RAP.DR PO SCH (18:03)
[2018-02-12] MEDS ORDERED: DEXTROSE 50%-WATER SYRINGE 25 GM/50 ML DOSE IV PRN (18:32)
[2018-02-12] MEDS ORDERED: DEXTROSE 40% GEL 15 GM TUBE X 2 PO PRN (18:32)
[2018-02-12] MEDS ORDERED: DEXTROSE 40% GEL 15 GM TUBE PO PRN (18:32)
[2018-02-12] MEDS ORDERED: GLUCAGON,HUMAN RECOMB 1 MG INJ IM PRN (18:32)
[2018-02-12] MEDS ORDERED: INSULIN LISPRO 100 UNIT/ML 3 ML VIAL SUBCUT PRN (18:32)
[2018-02-12] MEDS ORDERED: DEXTROSE 50%-WATER SYRINGE 12.5 GM/25 ML DOSE IV PRN (18:32)
[2018-02-12 18:50] LABS: ANION GAP 12 (5-19); BLOOD UREA NITROGEN 19 mg/dL (7-20); CALCIUM 8.5 mg/dL (8.4-10.2); CARBON DIOXIDE 28 mmol/L (22-30); CHLORIDE 103 mmol/L (98-107); CREATINE KINASE 106 U/L (55-170); GLUCOSE 152 mg/dL (75-110); POTASSIUM 3.4 mmol/L (3.6-5.0); SODIUM 142.5 mmol/L (137-145)
[2018-02-12] MEDS ORDERED: INSULIN GLARGINE,HUM.REC.ANLOG 1,000 UNIT/10 ML UNIT SUBCUT SCH (22:00)
[2018-02-12] MEDS: ONDANSETRON 4 MG TAB.RAPDIS PO SCH (22:49)
[2018-02-12] MEDS: HEPARIN SOD (PORCINE) 5,000 UNIT/ML 1 ML SYRINGE SUBCUT SCH (22:50)
[2018-02-12] MEDS: INSULIN GLARGINE,HUM.REC.ANLOG 300 UNIT/3 ML INSULN.PEN SUBCUT SCH (22:51)
[2018-02-13] MEDS: LEVALBUTEROL HCL NEB 1.25 MG/3 ML AMPUL NEB SCH ×4 (00:40→23:53)
[2018-02-13 00:58] LABS: CREATINE KINASE MB 3.45 ng/mL (<4.55); TROPONIN I 0.115 ng/mL
[2018-02-13 01:04] LABS: ANION GAP 7 (5-19); BLOOD UREA NITROGEN 20 mg/dL (7-20); CALCIUM 8.3 mg/dL (8.4-10.2); CARBON DIOXIDE 34 mmol/L (22-30); CHLORIDE 101 mmol/L (98-107); CREATINE KINASE 130 U/L (55-170); GLUCOSE 129 mg/dL (75-110); POTASSIUM 3.1 mmol/L (3.6-5.0)
[2018-02-13] MEDS: MORPHINE SULFATE 10 MG/ML INJ IV PRN ×4 (03:01→23:59)
[2018-02-13] MEDS: ONDANSETRON HCL INJ/PF 4 MG/2 ML SDV IV PRN (03:48)
[2018-02-13] MEDS: BUMETANIDE INJ/PF 1 MG/4 ML SDV IV SCH ×4 (04:45→23:59)
[2018-02-13] MEDS: HEPARIN SOD (PORCINE) 5,000 UNIT/ML 1 ML SYRINGE SUBCUT SCH ×3 (06:41→21:49)
[2018-02-13] MEDS: LACTULOSE SYRUP 20 GM/30 ML UDCUP PO SCH ×2 (06:44→11:44)
[2018-02-13] MEDS: LANSOPRAZOLE 30 MG TAB.RAP.DR PO SCH (06:44)
[2018-02-13 06:45] LABS: ABSOLUTE EOSINOPHILS # (AUTO) 0.1 10^3/uL (0.0-0.6); ABSOLUTE LYMPHOCYTES (AUTO) 0.6 10^3/uL (0.5-4.7); ABSOLUTE MONOCYTES (AUTO) 0.2 10^3/uL (0.1-1.4); ABSOLUTE NEUT (AUTO) 2.6 10^3/uL (1.7-8.2); BASOPHILS % (AUTO) 0.4 % (0-2); EOSINOPHILS % (AUTO) 1.6 % (0-6); HEMATOCRIT 29.3 % (37.9-51.0); HEMOGLOBIN 9.7 g/dL (13.5-17.0); LYMPHOCYTES % (AUTO) 17.9 % (13-45); MEAN CORPUSCULAR HEMOGLOBIN 29.5 pg (27.0-33.4); MEAN CORPUSCULAR VOLUME 89 fl (80-97); MONOCYTES % (AUTO) 4.7 % (3-13); PLATELET COUNT 112 10^3/uL (150-450); RED BLOOD COUNT 3.28 10^6/uL (4.35-5.55); RED CELL DISTRIBUTION WIDTH 14.4 % (11.5-14.0); SEGMENTED NEUTROPHILS % (AUTO) 75.4 % (42-78); TOTAL CELLS COUNTED % (AUTO) 100 %; WHITE BLOOD COUNT 3.4 10^3/uL (4.0-10.5)
[2018-02-13 07:05] LABS: ALANINE AMINOTRANSFERASE 15 U/L (21-72); ALKALINE PHOSPHATASE 62 U/L (38-126); ANION GAP 9 (5-19); ASPARTATE AMINO TRANSFERASE 29 U/L (17-59); BILIRUBIN,DIRECT 0.4 mg/dL (0.0-0.4); BILIRUBIN,TOTAL 0.5 mg/dL (0.2-1.3); BLOOD UREA NITROGEN 19 mg/dL (7-20); CALCIUM 8.4 mg/dL (8.4-10.2); CARBON DIOXIDE 35 mmol/L (22-30); CHLORIDE 100 mmol/L (98-107); CREATINE KINASE 141 U/L (55-170); GLUCOSE 133 mg/dL (75-110); POTASSIUM 3.3 mmol/L (3.6-5.0); SODIUM 144.1 mmol/L (137-145); TOTAL PROTEIN 6.5 g/dL (6.3-8.2); TRIGLYCERIDES 91 mg/dL (<150)
[2018-02-13 07:16] LABS: DIRECT LDL 84 mg/dL (<100)
[2018-02-13 07:21] LABS: FREE T3 3.56 pg/mL (2.77-5.27); FREE T4 (FREE THYROXINE) 1.51 ng/dL (0.78-2.19)
[2018-02-13 07:35] LABS: THYROID STIMULATING HORMONE 3.4 uIU/mL (0.47-4.68)
[2018-02-13] MEDS: POTASSIUM CHLORIDE 10 MEQ CAPSULE.ER PO SCH ×4 (09:11→21:52)
[2018-02-13] MEDS: METHADONE HCL 10 MG TABLET PO SCH ×3 (09:12→21:53)
[2018-02-13] MEDS: DOCUSATE SODIUM 100 MG CAPSULE PO SCH ×2 (09:12→17:11)
[2018-02-13] MEDS: TAMSULOSIN HCL 0.4 MG CAP.SR.24H PO SCH (09:12)
[2018-02-13] MEDS: LISINOPRIL 10 MG TABLET PO SCH (09:12)
[2018-02-13] MEDS: METOPROLOL SUCCINATE 50 MG TAB.SR.24H PO SCH (09:13)
[2018-02-13] MEDS: ONDANSETRON 4 MG TAB.RAPDIS PO SCH ×2 (09:13→21:56)
[2018-02-13] MEDS ORDERED: SOFOSBUVIR PO SCH (10:00)
[2018-02-13] MEDS ORDERED: VELPATASVIR PO SCH (10:00)
[2018-02-13] MEDS ORDERED: TIOTROPIUM BROMIDE DPI 5 CAP/KIT (18 MCG/CAP) IH SCH (10:00)
[2018-02-13] MEDS: TIOTROPIUM BROMIDE DPI 5 CAP/KIT (18 MCG/CAP) IH SCH (11:21)
[2018-02-13 13:34] LABS: ANION GAP 13 (5-19); BLOOD UREA NITROGEN 20 mg/dL (7-20); CALCIUM 8.5 mg/dL (8.4-10.2); CARBON DIOXIDE 31 mmol/L (22-30); CHLORIDE 100 mmol/L (98-107); CREATINE KINASE 156 U/L (55-170); GLUCOSE 125 mg/dL (75-110); POTASSIUM 3.4 mmol/L (3.6-5.0); SODIUM 143.6 mmol/L (137-145)
--- NOTE | 2018-02-13 14:16 | XCELERA REPORT ---
[address] [address] Transthoracic Echocardiogram Report Name: ART SORENSEN Age: 62 yrs Gender: Male : 1955 Patient Status: Inpatient Patient Location: [address] [place] [address] Study Date: 02/12/2018 04:38 PM Height: 69 in Weight: 258 lb BSA: 2.3 m2 Procedure: A two-dimensional transthoracic echocardiogram with color flow and Doppler was performed. Study Quality: Technically suboptimal. Poor imaging. Reason For Study: elevated bnp History: CHF / ELEVATED BNP. Ordering Physician: NELLY HADDAD Performed By: Celina Cat Interpretation Summary Very Poor imaging.In the parasternal long axis view the Anteroseptum and the posterior maguire probably contract well, and in this The LVEF is > 65%.Other wall motion cannot be interpretated.Probably no stenotic or regurgitant valvular diesease, but cannot be sure.Recomend FIRST PASS MUGA FOR RVEF AND LVEF. MMode/2D Measurements & Calculations RVDd: 2.3 cm LVIDd: 4.8 cm FS: 21.6 % Ao root diam: 2.9 cm IVSd: 1.4 cm LVIDs: 3.8 cm EDV(Teich): 107.6 ml Ao root area: 6.4 cm2 LVPWd: 1.5 cm ESV(Teich): 60.6 ml EF(Teich): 43.7 % LVOT diam: 1.9 cm LVOT area: 2.9 cm2 Doppler Measurements & Calculations MV E max terrence: MV dec slope: Ao V2 max: LV V1 max P.9 cm/sec 422.0 cm/sec2 122.9 cm/sec 8.4 mmHg MV A max terrence: MV dec time: 0.28 secAo max PG: LV V1 max: 117.9 cm/sec 6.0 mmHg 145.2 cm/sec MV E/A: 1.0 JAIMIE(V,D): 3.4 cm2 PA V2 max: TR max terrence: 135.8 cm/sec 125.8 cm/sec PA max P.4 mmHg TR max P.3 mmHg Left Ventricle Very Poor imaging.In the parasternal long axis view the Anteroseptum and the posterior maguire probably contract well, and in this The LVEF is > 65%.Other wall motion cannot be interpretated.Probably no stenotic or regurgitant valvular diesease, but cannot be sure.Recomend FIRST PASS MUGA FOR RVEF AND LVEF. : NELLY HADDAD Lakshmi
--- NOTE | 2018-02-13 16:18 | PDOC PROGRESS REPORT ---
Subjective Progress Note for:: 02/13/18 Subjective:: ART SORENSEN is a 62 year old male who originally presented to the emergency room on the evening of 02/11/2018 with a 2-day history of increased abdominal pressure/bloating accompanied by moderate to severe upper abdominal pain, dry heaves, nausea and dyspnea. He complains that his dyspnea had become worse which is what brought him to the emergency room and if the time that he arrived in the ER his dyspnea was severe. It improved after receiving IV Lasix which caused him to avoid numerous times and he could feel the swelling in his stomach go down which made it easier for him to breathe. He was originally going to be admitted but then decided to go home however he did not get a ride home and spent the night the emergency room waiting area and subsequently upon arising this morning noted that he was feeling short of breath again and he thought he would just go back in the emergency room and get admitted to get his breathing fixed again. He has a history of chronic hepatitis C as well as related hepatic cirrhosis. With similar prior episodes, he has required paracentesis to remove ascites to allow him to be able to breathe. He relates his onset of symptoms to taking 2 doses of amoxicillin clavulanic acid 875/125 a couple of days ago. He states that he is allergic to penicillin and after taking the first dose he did not feel well after taking the second as he began having the dry heaves and nausea and then he noticed increasing bloating in his abdomen and the dyspnea resulting after that. He was seen in the emergency room he was found to have fluid overload with edema present in his right lower extremity (has left BKA) and bibasilar rales on chest exam. These findings were again present this morning and the emergency room physician felt that the patient should be admitted for further evaluation and treatment of his fluid overload status. His potassium was noted to be only 3.5 and his BNP pro was 1490. Patient was subsequently admitted for diuretic therapy and potassium supplementation and repletion. 02/13/2018: Art has done very well with the diuresis utilizing intravenous Bumex 2 mg every 6 hours. He has had a marked reduction in the edema of his bilateral thighs as well as reduction in the edema of his abdominal pannus and significant improvement in his respiratory status with decrease in the bibasilar rales that were present as well as increased breath sounds and air motion through the bilateral bases and areas were there was dullness and decreased breath sounds consistent with pleural effusion. He states he feels much better, he is tolerating activity up in his chair and moving around. His been tolerating a diet and has had no difficulty with elimination. He is very impressed with the reduction in swelling of his thighs and abdomen and thinks that he can probably get out of here tomorrow if he can just get rid of a little bit more fluid. We have agreed to continue the Bumex IV for another 4 doses the last of which would be given tomorrow at noon and then he could be put back on oral furosemide probably at a dose of 60 mg twice daily instead of 40 mg twice daily. He is in agreement with this plan and I have explained that I will leave this plan where the hospitalist for tomorrow will be able to read it. Reason For Visit: ACUTE CONGESTIVE HEART FAILURE Physical Exam Vital Signs: Temp Pulse Resp BP Pulse Ox 98.0 F 61 19 122/68 90 L 02/13/18 11:17 02/13/18 14:00 02/13/18 11:17 02/13/18 11:17 02/13/18 11:17 Intake & Output 02/11/18 02/12/18 02/13/18 23:59 23:59 23:59 Intake Total 664 236 Output Total 1525 2000 Balance -861 1760 Weight 118.4 kg General appearance: PRESENT: no acute distress, cooperative, morbidly obese Head exam: PRESENT: atraumatic, normocephalic Eye exam: PRESENT: conjunctiva pink, EOMI Ear exam: PRESENT: normal external ear exam. ABSENT: bleeding Mouth exam: PRESENT: neck supple, other - Oral mucosa is moist with no gross pathologic lesions noted. Neck exam: ABSENT: thyromegaly, tracheal deviation Respiratory exam: PRESENT: clear to auscultation adrian, symmetrical, unlabored Cardiovascular exam: PRESENT: RRR, other - No murmurs clicks gallops or rubs are noted. Vascular exam: PRESENT: normal capillary refill. ABSENT: pallor GI/Abdominal exam: PRESENT: normal bowel sounds, soft. ABSENT: distended, tenderness Rectal exam: PRESENT: deferred Extremities exam: PRESENT: other - Significant reduction in the edema of the bilateral thighs is noted. Edema of the right lower extremity is essentially resolved.. ABSENT: joint swelling Musculoskeletal exam: PRESENT: other - Status post left BKA. ABSENT: dislocation Neurological exam: PRESENT: alert, oriented to person, oriented to place, oriented to time, oriented to situation, CN II-XII grossly intact Psychiatric exam: PRESENT: appropriate affect, normal mood Skin exam: PRESENT: dry, intact, warm. ABSENT: jaundice, rash, urticaria Results Laboratory Results: 02/13/18 06:20 02/13/18 12:38 02/12/18 02/13/18 02/13/18 18:20 00:13 06:20 WBC 3.4 L RBC 3.28 L Hgb 9.7 L Hct 29.3 L MCV 89 MCH 29.5 MCHC 33.0 RDW 14.4 H Plt Count 112 L Seg Neutrophils % 75.4 Lymphocytes % 17.9 Monocytes % 4.7 Eosinophils % 1.6 Basophils % 0.4 Absolute Neutrophils 2.6 Absolute Lymphocytes 0.6 Absolute Monocytes 0.2 Absolute Eosinophils 0.1 Absolute Basophils 0.0 Sodium 142.5 142.0 Potassium 3.4 L 3.1 L Chloride 103 101 Carbon Dioxide 28 34 H Anion Gap 12 7 BUN 19 20 Creatinine 0.89 1.03 Est GFR ( Amer) > 60 > 60 Est GFR (Non-Af Amer) > 60 > 60 Glucose 152 H 129 H Calcium 8.5 8.3 L Magnesium Total Bilirubin AST ALT Alkaline Phosphatase Total Protein Albumin Triglycerides Cholesterol LDL Cholesterol Direct VLDL Cholesterol HDL Cholesterol TSH Free T4 Free T3 pg/mL 02/13/18 02/13/18 02/13/18 06:20 06:20 12:38 WBC RBC Hgb Hct MCV MCH MCHC RDW Plt Count Seg Neutrophils % Lymphocytes % Monocytes % Eosinophils % Basophils % Absolute Neutrophils Absolute Lymphocytes Absolute Monocytes Absolute Eosinophils Absolute Basophils Sodium 144.1 143.6 Potassium 3.3 L 3.4 L Chloride 100 100 Carbon Dioxide 35 H 31 H Anion Gap 9 13 BUN 19 20 Creatinine 1.13 1.07 Est GFR ( Amer) > 60 > 60 Est GFR (Non-Af Amer) > 60 > 60 Glucose 133 H 125 H Calcium 8.4 8.5 Magnesium 1.6 Total Bilirubin 0.5 AST 29 ALT 15 L Alkaline Phosphatase 62 Total Protein 6.5 Albumin 3.0 L Triglycerides 91 Cholesterol 119.50 LDL Cholesterol Direct 84 VLDL Cholesterol 18.0 HDL Cholesterol 29 L TSH 3.40 Free T4 1.51 Free T3 pg/mL 3.56 02/12/18 02/12/18 02/12/18 18:20 18:20 18:20 Creatine Kinase 106 CK-MB (CK-2) 3.62 Troponin I 0.135 02/13/18 02/13/18 02/13/18 00:13 00:13 06:20 Creatine Kinase 130 141 CK-MB (CK-2) 3.45 Troponin I 0.115 02/13/18 02/13/18 02/13/18 06:20 12:38 12:38 Creatine Kinase 156 CK-MB (CK-2) 3.90 3.75 Troponin I Impressions: KUB X-Ray 02/12/18 08:14 IMPRESSION: There is incomplete coverage of the abdomen due to large body habitus. Within this limitation, nonobstructive pattern of bowel gas with gas and stool present to the rectum. Moderate burden of stool in the right colon. No obvious free air in the abdomen on incomplete supine radiographs. Assessment & Plan - Diagnosis (1) CHF (congestive heart failure) Qualifiers: Heart failure chronicity: unspecified Is this a current diagnosis for this admission?: Yes Plan: Patient has significant fluid overload evidenced by his edema and elevated BNP pro. He is to be treated with Bumex 2 mg IV every 6 hours x4 doses and have serial basic metabolic profiles obtained every 6 hours following those administrations. He will be initiated on therapy with lisinopril 20 mg p.o. daily and metoprolol succinate 50 mg p.o. daily. 02/13/2018: Patient responded very dramatically to therapy which will be continued for another 4 doses of Bumex. At that time I would plan to convert him to furosemide 60 mg p.o. twice daily and also continue the lisinopril 20 mg p.o. daily and metoprolol succinate 50 mg p.o. daily. An alternative of torsemide 60 -100 mg p.o. daily could be considered. Patient will no doubt require potassium supplementation which should also be ordered at the time of discharge. (2) Retching Is this a current diagnosis for this admission?: Yes Plan: Patient admits that his retching is better but he did receive Zofran in the emergency room. His therapy will be continued with Zofran 4 mg sublingually or IV every 4 hours as needed nausea or vomiting. 02/13/2018: Patient's retching has resolved with 1 dose of Zofran which she received in the emergency room. He has not required any further treatment for this problem according to his admission. Therefore at this time the patient's retching has resolved. (3) Abdominal pain Qualifiers: Abdominal location: unspecified location Qualified Code(s): R10.9 - Unspecified abdominal pain Is this a current diagnosis for this admission?: Yes Plan: Patient admits that his abdominal pain is better after receiving Lasix IV and torsemide p.o. during his ER course. We will observe his abdominal pain over the course of his treatment for improvement. 02/13/2018: Art admits that his abdominal pain is absent at this point and has been much improved since last evening after receiving a couple doses of Bumex. Therefore at this time patient's abdominal pain has resolved. (4) Chronic pain syndrome Is this a current diagnosis for this admission?: Yes Plan: Patient is a chronic pain patient and has been on a chronic pain regiment utilizing methadone 20 mg twice daily and 10 mg at bedtime for more than a year. He also uses oxycodone 15 mg p.o. every 4 hours as needed breakthrough pain. I have elected to continue patient on his chronic methadone dosage, however, his oxycodone will not be provided, instead will provide morphine sulfate 10 mg IV every 4 hours as needed breakthrough pain. 02/13/2018: Patient has been doing quite well with the regiment as outlined above. He is having adequate breakthrough pain control with the morphine sulfate. (5) Morbid (severe) obesity due to excess calories Is this a current diagnosis for this admission?: Yes Plan: Patient has significant obesity which would be best addressed by dietary measures. I have broached the subject patient does not seem to be interested despite style modification and educational attempts. (6) Elevated troponin I level Is this a current diagnosis for this admission?: Yes Plan: Serial troponins and cardiac enzymes will be obtained and a cardiogram will also be obtained. Serial EKGs will be performed evaluation for possible non- STEMI will be determined based on the findings of the ordered tests. Cardiology consultation and possible stress testing if appropriate. 02/13/2018: Serial evaluations of the patient's troponin and creatinine kinase levels demonstrate no evidence for myocardial injury or ischemia. Serial EKG showed no acute changes with no evidence of cardiac ischemia or injury. At this point I do not feel that a stress test would necessarily be required during his hospital course and therefore I will not obtain a cardiology consultation in house. Patient will be referred to cardiology on discharge for consideration to have a stress test on an outpatient basis. - Time Time Spent with patient: 15-24 minutes Medications reviewed and adjusted accordingly: Yes Anticipated discharge: Home Within: within 24 hours
[2018-02-13] MEDS: FAMOTIDINE 20 MG TABLET PO SCH (17:11)
[2018-02-13] MEDS: INSULIN GLARGINE,HUM.REC.ANLOG 300 UNIT/3 ML INSULN.PEN SUBCUT SCH (21:55)
[2018-02-14 05:19] LABS: ABSOLUTE EOSINOPHILS # (AUTO) 0.1 10^3/uL (0.0-0.6); ABSOLUTE MONOCYTES (AUTO) 0.2 10^3/uL (0.1-1.4); ABSOLUTE NEUT (AUTO) 1.8 10^3/uL (1.7-8.2); BASOPHILS % (AUTO) 0.4 % (0-2); EOSINOPHILS % (AUTO) 2.6 % (0-6); HEMOGLOBIN 8.9 g/dL (13.5-17.0); MEAN CORPUSCULAR HEMOGLOBIN 29.5 pg (27.0-33.4); MEAN CORPUSCULAR VOLUME 90 fl (80-97); MONOCYTES % (AUTO) 7.6 % (3-13); RED BLOOD COUNT 3.02 10^6/uL (4.35-5.55); RED CELL DISTRIBUTION WIDTH 14.2 % (11.5-14.0); SEGMENTED NEUTROPHILS % (AUTO) 58.4 % (42-78); TOTAL CELLS COUNTED % (AUTO) 100 %; WHITE BLOOD COUNT 3.1 10^3/uL (4.0-10.5)
[2018-02-14 05:30] LABS: PLATELET COUNT 99 10^3/uL (150-450)
[2018-02-14 05:38] LABS: ANION GAP 10 (5-19); BLOOD UREA NITROGEN 19 mg/dL (7-20); CALCIUM 8.1 mg/dL (8.4-10.2); CARBON DIOXIDE 33 mmol/L (22-30); CHLORIDE 101 mmol/L (98-107); GLUCOSE 58 mg/dL (75-110); POTASSIUM 3.1 mmol/L (3.6-5.0)
[2018-02-14] MEDS: HEPARIN SOD (PORCINE) 5,000 UNIT/ML 1 ML SYRINGE SUBCUT SCH ×2 (06:00→14:05)
[2018-02-14] MEDS: FAMOTIDINE 20 MG TABLET PO SCH (06:15)
[2018-02-14] MEDS: MORPHINE SULFATE 10 MG/ML INJ IV PRN ×2 (06:25→13:06)
[2018-02-14] MEDS: LEVALBUTEROL HCL NEB 1.25 MG/3 ML AMPUL NEB SCH ×2 (07:39→15:43)
[2018-02-14] MEDS: MAGNESIUM SULFATE 1 GM/D5W 100 ML IV SCH ×2 (07:50→09:36)
[2018-02-14] MEDS ORDERED: POTASSIUM CHLORIDE 10 MEQ CAPSULE.ER PO ONE (08:00)
[2018-02-14] MEDS: BUMETANIDE INJ/PF 1 MG/4 ML SDV IV SCH (08:20)
[2018-02-14] MEDS: POTASSIUM CHLORIDE 10 MEQ CAPSULE.ER PO SCH ×2 (09:33→12:45)
[2018-02-14] MEDS: DOCUSATE SODIUM 100 MG CAPSULE PO SCH (09:34)
[2018-02-14] MEDS: METHADONE HCL 10 MG TABLET PO SCH (09:34)
[2018-02-14] MEDS: LISINOPRIL 10 MG TABLET PO SCH (09:34)
[2018-02-14] MEDS: TAMSULOSIN HCL 0.4 MG CAP.SR.24H PO SCH (09:34)
[2018-02-14] MEDS: METOPROLOL SUCCINATE 50 MG TAB.SR.24H PO SCH (09:34)
[2018-02-14] MEDS: ONDANSETRON 4 MG TAB.RAPDIS PO SCH (09:35)
[2018-02-14] MEDS: TIOTROPIUM BROMIDE DPI 5 CAP/KIT (18 MCG/CAP) IH SCH (09:35)
[2018-02-14] MEDS ORDERED: MAGNESIUM SULFATE/D5W 1 GM/100 ML RTUPB IV SCH (11:15)
[2018-02-14 15:55] LABS: ANION GAP 12 (5-19); BLOOD UREA NITROGEN 19 mg/dL (7-20); CALCIUM 8.3 mg/dL (8.4-10.2); CARBON DIOXIDE 33 mmol/L (22-30); CHLORIDE 98 mmol/L (98-107); GLUCOSE 93 mg/dL (75-110); SODIUM 142.5 mmol/L (137-145)
[2018-02-14 17:57] VITALS: BP 161/72
--- NOTE | 2018-02-14 19:28 | Progress Note ---
Provider Note Provider Note: Assumed care today. Patient was admitted after presenting with increasing abdominal distention, bipedal edema and SOB. He was noted to be in fluid overload. He has cirrhosis from hepatitis C and takes lasix and spironolactone at home. He was started on Bumex 2 mg q6 IV. Patient did report he feels much better today. Upon review of labs, it appears he had developed ELDA likely from aggressive diuresis from a creatinine of 0.8 to 1.3. Explained to patient that I recommend keeping him for at least another day to hold off on Bumex today and recheck his renal function after holding off ont he bumex. Explained that we'll have to reassess his ELDA before deciding about resuming his home regimen of lasix and spironolactone. Patient says he cannot stay here and needs to go home today to prepare for Thanksgiving and he is definitely leaving today.
--- NOTE | 2018-02-16 12:36 | PDOC DISCHARGE SUMMARY ---
General - Admit/Disc Date/PCP Admission Date/Primary Care Provider: 02/12/18 15:01 JATINDER MENDEZ, DO Discharge Date: 02/14/18 - Additional Information Resuscitation Status: Full Code Discharge Diet: Cardiac, Diabetic Discharge Activity: Activity As Tolerated, Balance Activity w/Rest, Weigh Daily Prescriptions: Lactulose 5 gm PO DAILY PRN #1 ml PRN Reason: Propranolol HCl [Inderal 10 mg Tablet] 10 mg PO Q12 #60 tab Spironolactone [Aldactone 25 mg Tablet] 0.5 tab PO BID #30 tablet Home Medications: Insulin Aspart [Novolog Flexpen] 0 unit SQ .SLIDING SCALE 10/17/17 Insulin Glargine,Hum.rec.anlog [Lantus] 35 unit SQ QHS 10/17/17 Methadone HCl 20 mg PO BID 10/17/17 Oxycodone HCl 15 mg PO Q4HP PRN 10/17/17 Tamsulosin HCl 0.4 mg PO DAILY 10/17/17 Tiotropium [place] [Spiriva Respimat] 2 puff IH DAILY 10/17/17 Sofosbuvir/Velpatasvir [Epclusa 400 mg-100 mg Tablet] 1 each PO DAILY 01/20/18 Methadone HCl [Dolophine 10 mg Tablet] 10 mg PO QHS 02/12/18 Ondansetron [Zofran Odt 4 mg Tablet] 4 mg PO Q12H 02/12/18 Lactulose 5 gm PO DAILY PRN #1 ml 02/14/18 Propranolol HCl [Inderal 10 mg Tablet] 10 mg PO Q12 #60 tab 02/14/18 Spironolactone [Aldactone 25 mg Tablet] 0.5 tab PO BID #30 tablet 02/14/18 History of Present Illness History of Present Illness: Admitting hospitalist's H&P: ART Garcia FRANCHESCA is a 62 year old male who originally presented to the emergency room on the evening of 02/11/2018 with a 2-day history of increased abdominal pressure/bloating accompanied by moderate to severe upper abdominal pain, dry heaves, nausea and dyspnea. He complains that his dyspnea had become worse which is what brought him to the emergency room and if the time that he arrived in the ER his dyspnea was severe. It improved after receiving IV Lasix which caused him to avoid numerous times and he could feel the swelling in his stomach go down which made it easier for him to breathe. He was originally going to be admitted but then decided to go home however he did not get a ride home and spent the night the emergency room waiting area and subsequently upon arising this morning noted that he was feeling short of breath again and he thought he would just go back in the emergency room and get admitted to get his breathing fixed again. He has a history of chronic hepatitis C as well as related hepatic cirrhosis. With similar prior episodes, he has required paracentesis to remove ascites to allow him to be able to breathe. He relates his onset of symptoms to taking 2 doses of amoxicillin clavulanic acid 875/125 a couple of days ago. He states that he is allergic to penicillin and after taking the first dose he did not feel well after taking the second as he began having the dry heaves and nausea and then he noticed increasing bloating in his abdomen and the dyspnea resulting after that. He was seen in the emergency room he was found to have fluid overload with edema present in his right lower extremity (has left BKA) and bibasilar rales on chest exam. These findings were again present this morning and the emergency room physician felt that the patient should be admitted for further evaluation and treatment of his fluid overload status. His potassium was noted to be only 3.5 and his BNP pro was 1490. Patient was subsequently admitted for diuretic therapy and potassium supplementation and repletion. Hospital Course Hospital Course: Patient was admitted after presenting with increasing abdominal distention, bipedal edema and SOB. He was noted to be in fluid overload. He has cirrhosis from hepatitis C and takes lasix and spironolactone at home. He was started on Bumex 2 mg q6 IV. Patient did report he feels much better today. Upon review of labs, it appears he had developed ELDA likely from aggressive diuresis from a creatinine of 0.8 to 1.3. Explained to patient that I recommend keeping him for at least another day to hold off on Bumex today and recheck his renal function after holding off on the bumex. Explained that we'll have to reassess his ELDA before deciding about resuming his home regimen of lasix and spironolactone. Patient says he cannot stay here and needs to go home today to prepare for giving and he is definitely leaving today. He agreed to having his BMP repeated later this afternoon and repeating his BMP tomorrow with his PCP as he says he has an appt with PCP tomorrow. Will hold off on his home Lasix until he gets his repeat BMP tomorrow. His home diuretic regimen will be resumed and titrated approrpriately instead tomorrow by his PCP. Physical Exam Vital Signs: Temp Pulse Resp BP Pulse Ox 99.3 F 64 18 161/72 H 92 02/14/18 17:56 02/14/18 17:56 02/14/18 17:56 02/14/18 17:56 02/14/18 17:56 Intake & Output 02/15/18 02/16/18 02/17/18 06:59 06:59 06:59 Intake Total 300 Output Total 200 Balance 100 Results Laboratory Results: 02/14/18 04:32 02/14/18 15:00 02/12/18 02/12/18 02/12/18 18:20 18:20 18:20 Creatine Kinase 106 CK-MB (CK-2) 3.62 Troponin I 0.135 02/13/18 02/13/18 02/13/18 00:13 00:13 06:20 Creatine Kinase 130 141 CK-MB (CK-2) 3.45 Troponin I 0.115 02/13/18 02/13/18 02/13/18 06:20 12:38 12:38 Creatine Kinase 156 CK-MB (CK-2) 3.90 3.75 Troponin I Impressions: KUB X-Ray 02/12/18 08:14 IMPRESSION: There is incomplete coverage of the abdomen due to large body habitus. Within this limitation, nonobstructive pattern of bowel gas with gas and stool present to the rectum. Moderate burden of stool in the right colon. No obvious free air in the abdomen on incomplete supine radiographs. Qualifiers - * PATIENT BEING DISCHARGED WITH ANY OF THE FOLLOWING DIAGNOSIS: No
== END 2018-02-14 18:07 | disposition home or self-care (01) | DRG 291 ==
LOC: ER 07:49 → EH 09:26 → INTOOBSV 09:26 → 3S 11:43 → OBSVTOIN 15:01 → 3N 21:24
PROVIDERS: ADMIT Emergency Medicine; ATTEND Emergency Medicine
DX: I11.0 Hypertensive heart disease with heart failure (principal); I50.31 Acute diastolic (congestive) heart failure; N17.9 Acute kidney failure, unspecified; K74.60 Unspecified cirrhosis of liver; B18.2 Chronic viral hepatitis C; T50.1X5A Adverse effect of loop [high-ceiling] diuretics, initial encounter; E78.5 Hyperlipidemia, unspecified; J44.9 Chronic obstructive pulmonary disease, unspecified; E11.9 Type 2 diabetes mellitus without complications; E03.9 Hypothyroidism, unspecified; E66.01 Morbid (severe) obesity due to excess calories; G89.4 Chronic pain syndrome; R11.10 Vomiting, unspecified; I73.9 Peripheral vascular disease, unspecified; Z79.4 Long term (current) use of insulin; Z79.891 Long term (current) use of opiate analgesic; Z89.512 Acquired absence of left leg below knee; Z90.49 Acquired absence of other specified parts of digestive tract; Z87.891 Personal history of nicotine dependence; Z83.3 Family history of diabetes mellitus; Z82.49 Family history of ischemic heart disease and other diseases of the circulatory system; Z83.438 Family history of other disorder of lipoprotein metabolism and other lipidemia; Z23 Encounter for immunization
CPT/HCPCS: 36415; 74018; 80048; 80061; 80076; 82550; 82553; 82962; 83036; 83735; 84439; 84443; 84481; 84484; 85025; 90686; 93306; 94640; 99285; G0378; J1644; J1815; J2270; J2405; J3475; J3490; S0119

== ENCOUNTER 2018-03-31 22:23 | Inpatient (IN) | payer MEDICAID ==
[2018-03-31] MEDS ORDERED: LORAZEPAM INJ 2 MG/1 ML VIAL IV ONE (22:30)
--- NOTE | 2018-03-31 22:35 | ER Document Report ---
ED General - General Stated Complaint: TROUBLE BREATHING Time Seen by Provider: 03/31/18 22:29 Notes: Patient is a 62-year-old male with a history of CHF who presents with complaint of difficulty breathing. No fevers. No vomiting. No chest pain. He says he has some pain in his abdomen which she has had in the past. He was recently discharged from the hospital due to edema and CHF. He also had some elevated troponins at that time which trended down. When [facility] arrived at his house his oxygen saturation was 82% on room air. He was placed on oxygen and then placed on BiPAP. He was given 1 breathing treatment because they heard some wheezing. Patient says he does not like the CPAP as it makes him feel claustrophobic. He has no other complaints at this time. TRAVEL OUTSIDE OF THE [place] IN LAST 30 DAYS: No - Related Data Allergies/Adverse Reactions: Penicillins Allergy (Mild, Verified 04/01/18 00:16) Generalized Itching propoxyphene napsylate [From Darvocet-N 100] Allergy (Mild, Verified 04/01/18 00:16) Generalized Itching Past Medical History - Social History Smoking Status: Never Smoker Frequency of alcohol use: None Drug Abuse: None Family History: DM, Hyperlipidemia, Hypertension - Past Medical History Cardiac Medical History: Reports: Hx Hypercholesterolemia Denies: Hx Atrial Fibrillation, Hx Congestive Heart Failure, Hx Coronary Artery Disease, Hx Heart Attack, Hx Hypertension, Hx Peripheral Vascular Disease, Hx Pulmonary Embolism, Hx Heart Murmur Pulmonary Medical History: Reports: Hx COPD - ON MEDICATION Denies: Hx Asthma, Hx Bronchitis, Hx Pneumonia, Hx Respiratory Failure, Hx Sleep Apnea, Hx Tuberculosis Neurological Medical History: Denies: Hx Cerebrovascular Accident, Hx Seizures Endocrine Medical History: Reports: Hx Diabetes Mellitus Type 2, Hx Hypothyroidism - on meds. Denies: Hx Diabetes Mellitus Type 1, Hx Graves' Disease, Hx Hyperthyroidism Renal/ Medical History: Denies: Hx Benign Prostatic Hyperplasia, Hx End Stage Renal Disease, Hx Peritoneal Dialysis Malignancy Medical History: Denies Hx Lung Cancer, Denies Hx Pancreatic Cancer, Denies Hx Renal (Kidney) Cancer GI Medical History: Reports: Hx Cirrhosis, Hx Gastroesophageal Reflux Disease - mild, Hx Hepatitis - Chronic hepatitis C. Denies: Hx Crohn's Disease, Hx Hiatal Hernia, Hx Irritable Bowel, Hx Liver Failure, Hx Pancreatitis, Hx Ulcer Musculoskeletal Medical History: Reports Hx Arthritis, Denies Hx Fibromyalgia, Denies Hx Muscular Dystrophy Skin Medical History: Denies Hx Eczema, Denies Hx Psoriasis Psychiatric Medical History: Reports: Hx Depression Traumatic Medical History: Denies: Hx Fractures Infectious Medical History: Reports: Hx Hepatitis - Chronic hepatitis C Past Surgical History: Reports: Hx Cholecystectomy, Hx Orthopedic Surgery - Lt BKA. Denies: Hx Appendectomy, Hx Bowel Surgery, Hx Colostomy, Hx Coronary Artery Bypass Graft, Hx Gastric Bypass Surgery, Hx Herniorrhaphy, Hx Pacemaker, Hx Tonsillectomy - Immunizations Hx Diphtheria, Pertussis, Tetanus Vaccination: Yes Hx Pneumococcal Vaccination: 02/07/13 Review of Systems - Review of Systems Notes: My Normal Review Basic REVIEW OF SYSTEMS: CONSTITUTIONAL : Denies fever, chills, or sweats. Denies recent illness. EENT: Denies eye, ear, throat, or mouth pain or symptoms. Denies nasal or sinus congestion. CARDIOVASCULAR: Denies chest pain. RESPIRATORY: Difficulty breathing GASTROINTESTINAL: Denies abdominal pain. Denies nausea, vomiting, or diarrhea. MUSCULOSKELETAL: Denies neck or back pain or joint pain or swelling. SKIN: Denies rash or skin lesions. NEUROLOGICAL: Denies altered mental status or loss of consciousness. Denies headache. Denies weakness or paralysis or loss of use of either side. Denies problems with gait or speech. Denies sensory or motor loss. ALL OTHER SYSTEMS REVIEWED AND NEGATIVE. Physical Exam - Vital signs Vitals: Pulse 88 03/31/18 22:24 - Notes Notes: General Appearance: Well nourished, alert, cooperative, mild acute distress, no obvious discomfort. Vitals: reviewed, See vital signs table. Head: no swelling or tenderness to the head Eyes: PERRL, EOMI, Conjuctiva clear Mouth: No decreasd moisture Throat: No tonsillar inflammation, No airway obstruction, No lymphadenopathy Neck: Supple, no neck tenderness, No thyromegaly Lungs: No wheezing, bibasilar rales. Mild accessory muscle use. Heart: Normal rate, Regular rythm, No murmur, no rub Abdomen: Normal BS, soft, No rigidity, some left lower quadrant double tenderness to palpation., No guarding, no rebound, no abdominal masses, no organomegaly Extremities: Patient has lower extremity amputation. Skin: warm, dry, appropriate color, no rash Neuro: speech clear, oriented x 3, normal affect, responds appropriately to questions. Course - Re-evaluation Re-evalutation: 04/01/18 09:20 On exam patient has bibasilar rales. He has some difficulty breathing. Eventually was able to get him to place our BiPAP mask on a trach and will be Ativan. His breathing improved significantly with the BiPAP. I gave him some Lasix. He complains of some left lower quadrant abdominal pain however I reviewed his records and this is a chronic recurring pain that he always seems to have. I do not see anything concerning on my exam as his abdomen is very soft and there is no peritoneal signs. Due to the patient's require supplement oxygen and is distressed when he first arrived he felt appropriate to admit him for treatment of CHF. I spoke with the hospitalist, Dr. Srivastava, who agrees to evaluate the patient for admission. Dictation of this chart was performed using voice recognition software; therefore, there may be some unintended grammatical errors. - Vital Signs Vital signs: Temp Pulse Resp BP Pulse Ox 97.8 F 66 15 138/58 H 94 04/01/18 07:10 04/01/18 07:10 04/01/18 07:10 04/01/18 07:10 04/01/18 07:10 - Laboratory Result Diagrams: 04/01/18 04:42 04/01/18 04:42 Laboratory results interpreted by me: 03/31/18 03/31/18 03/31/18 22:35 22:35 22:35 RBC 4.25 L Hgb 11.5 L Hct 34.3 L RDW 15.2 H Plt Count 103 L Seg Neutrophils % 81.8 H Lymphocytes % 11.5 L Potassium 3.4 L Carbon Dioxide 32 H Glucose 195 H Calcium 8.1 L NT-Pro-B Natriuret Pep 2960 H Albumin 2.9 L - EKG Interpretation by Me Additional EKG results interpreted by me: 03/31/18 22:35 EKG is reviewed and interpreted by me. EKG shows sinus rhythm with a rate of [address] segment elevation or depression. No ischemic T wave inversions. IL interval, QRS duration are within normal range. QT interval is prolonged. Discharge - Discharge Clinical Impression: Hypoxemia CHF (congestive heart failure) Qualifiers: Heart failure type: diastolic Heart failure chronicity: acute on chronic Qualified Code(s): I50.33 - Acute on chronic diastolic (congestive) heart failure Condition: Stable Disposition: ADMITTED INPATIENT Admitting Provider: Hospitalist Unit Admitted: [facility]
[2018-03-31 22:52] LABS: ABSOLUTE LYMPHOCYTES (AUTO) 0.7 10^3/uL (0.5-4.7); ABSOLUTE MONOCYTES (AUTO) 0.3 10^3/uL (0.1-1.4); ABSOLUTE NEUT (AUTO) 4.6 10^3/uL (1.7-8.2); BASOPHILS % (AUTO) 0.4 % (0-2); EOSINOPHILS % (AUTO) 0.3 % (0-6); HEMATOCRIT 34.3 % (37.9-51.0); HEMOGLOBIN 11.5 g/dL (13.5-17.0); LYMPHOCYTES % (AUTO) 11.5 % (13-45); MEAN CORPUSCULAR HEMOGLOBIN 27.1 pg (27.0-33.4); MEAN CORPUSCULAR HGB CONC 33.5 g/dL (32.0-36.0); MEAN CORPUSCULAR VOLUME 81 fl (80-97); PLATELET COUNT 103 10^3/uL (150-450); RED BLOOD COUNT 4.25 10^6/uL (4.35-5.55); RED CELL DISTRIBUTION WIDTH 15.2 % (11.5-14.0); SEGMENTED NEUTROPHILS % (AUTO) 81.8 % (42-78); TOTAL CELLS COUNTED % (AUTO) 100 %; WHITE BLOOD COUNT 5.6 10^3/uL (4.0-10.5)
[2018-03-31 23:06] LABS: ALANINE AMINOTRANSFERASE 22 U/L (21-72); ALBUMIN 2.9 g/dL (3.5-5.0); ALKALINE PHOSPHATASE 79 U/L (38-126); ANION GAP 5 (5-19); ASPARTATE AMINO TRANSFERASE 28 U/L (17-59); BILIRUBIN,DIRECT 0.4 mg/dL (0.0-0.4); BILIRUBIN,TOTAL 1.3 mg/dL (0.2-1.3); BLOOD UREA NITROGEN 20 mg/dL (7-20); CALCIUM 8.1 mg/dL (8.4-10.2); CARBON DIOXIDE 32 mmol/L (22-30); CHLORIDE 101 mmol/L (98-107); GLUCOSE 195 mg/dL (75-110); POTASSIUM 3.4 mmol/L (3.6-5.0); SODIUM 137.7 mmol/L (137-145); TOTAL PROTEIN 6.5 g/dL (6.3-8.2)
--- NOTE | 2018-03-31 23:09 | RADIOLOGY REPORT (SQ) ---
XR CHEST 1 VIEW HISTORY: Chest pain. COMPARISON: 02/12/2018 FINDINGS: The heart size is mildly enlarged. There are chronic changes at the lung bases. A small left pleural effusion is seen. IMPRESSION: Small left pleural effusion. Chronic atelectasis at the lung bases.
[2018-03-31 23:17] LABS: TROPONIN I 0.024 ng/mL
[2018-03-31] MEDS ORDERED: FUROSEMIDE INJ/PF 20 MG/2 ML SDV IV ONE (23:58)
[2018-04-01] MEDS ORDERED: MAG HYDROX/AL HYDROX/SIMETH SUSP 30 ML UDCUP PO PRN (00:21)
[2018-04-01] MEDS ORDERED: LORAZEPAM INJ 2 MG/1 ML VIAL IV ONE (00:24)
[2018-04-01] MEDS ORDERED: FUROSEMIDE INJ/PF 40 MG/4 ML SDV IV ONE (01:26)
[2018-04-01] MEDS ORDERED: NITROGLYCERIN 5 MG (0.2 MG/HR) PATCH.TD24 TD ONE (01:26)
[2018-04-01 02:01] LABS: URINE AMPHETAMINES SCREEN NEGATIVE; URINE BARBITURATES SCREEN NEGATIVE; URINE BENZODIAZEPINES SCREEN NEGATIVE; URINE COCAINE SCREEN NEGATIVE; URINE MARIJUANA (THC) SCREEN NEGATIVE; URINE METHADONE SCREEN UNCONFIRMED POSITIVE; URINE PHENCYCLIDINE SCREEN NEGATIVE
[2018-04-01 05:19] LABS: ABSOLUTE LYMPHOCYTES (AUTO) 0.3 10^3/uL (0.5-4.7); ABSOLUTE MONOCYTES (AUTO) 0.1 10^3/uL (0.1-1.4); ABSOLUTE NEUT (AUTO) 2.6 10^3/uL (1.7-8.2); BASOPHILS % (AUTO) 0.1 % (0-2); EOSINOPHILS % (AUTO) 0.2 % (0-6); MEAN CORPUSCULAR HEMOGLOBIN 26.7 pg (27.0-33.4); MEAN CORPUSCULAR HGB CONC 33.4 g/dL (32.0-36.0); MEAN CORPUSCULAR VOLUME 80 fl (80-97); MONOCYTES % (AUTO) 1.8 % (3-13); RED BLOOD COUNT 4.13 10^6/uL (4.35-5.55); RED CELL DISTRIBUTION WIDTH 15.4 % (11.5-14.0); SEGMENTED NEUTROPHILS % (AUTO) 86.9 % (42-78); TOTAL CELLS COUNTED % (AUTO) 100 %
[2018-04-01 05:39] LABS: ANION GAP 8 (5-19); BLOOD UREA NITROGEN 22 mg/dL (7-20); CARBON DIOXIDE 28 mmol/L (22-30); CHLORIDE 103 mmol/L (98-107); CREATINE KINASE 58 U/L (55-170); GLUCOSE 255 mg/dL (75-110); POTASSIUM 3.4 mmol/L (3.6-5.0); SODIUM 138.6 mmol/L (137-145)
[2018-04-01 05:40] LABS: PLATELET COUNT 92 10^3/uL (150-450)
[2018-04-01] MEDS: HEPARIN SOD (PORCINE) 5,000 UNIT/ML 1 ML SYRINGE SUBCUT SCH ×3 (05:41→23:42)
[2018-04-01 05:47] LABS: CREATINE KINASE MB 1.68 ng/mL (<4.55); TROPONIN I 0.04 ng/mL
--- NOTE | 2018-04-01 06:08 | PDOC H&P ---
History of Present Illness Admission Date/PCP: 04/01/18 00:49 JATINDER MENDEZ DO Patient complains of: Shortness of breath History of Present Illness: ART SORENSEN is a 62 year old male with a somewhat unclear past medical history as he appears to be sedated. His history is obtained by the record and medication bottles. Hepatic cirrhosis secondary to hepatitis C, opiate dependent chronic pain, diastolic heart failure, hypertension, morbid obesity, diabetes, peripheral vascular disease and GERD. Patient presents with shortness of breath satting 82% on room air and systolic pressure in the 190s. He receives Lasix and BiPAP then referred to the hospitalist for admission. Patient denies chest pain palpitations nausea or vomiting. He denies recent change in medications though he is unaware of any dietary restrictions. Aldactone is found in his medication bag however he has hypo-kalemia. Past Medical History Cardiac Medical History: Reports: Hyperlipidema Denies: Atrial Fibrillation, Congestive Heart Failure, Coronary Artery Disease, Myocardial Infarction, Hypertension, Peripheral Vascular Disease, Pul monary Embolism, Heart Murmur Pulmonary Medical History: Reports: Chronic Obstructive Pulmonary Disease (COPD) - ON MEDICATION Denies: Asthma, Bronchitis, Pneumonia, Respiratory Failure, Sleep Apnea, Tuberculosis Neurological Medical History: Denies: Seizures Endocrine Medical History: Reports: Diabetes Mellitus Type 2, Hypothyroidism - on meds Denies: Diabetes Mellitus Type 1, Hyperthyroidism Renal/ Medical History: Denies: End Stage Renal Disease Malignancy Medical History: Denies: Lung Cancer, Pancreatic Cancer, Renal (Kidney) Cancer GI Medical History: Reports: Cirrhosis, Gastroesophageal Reflux Disease - mild, Hepatitis - Chronic hepatitis C Denies: Crohn's Disease, Hiatal Hernia Musculoskeltal Medical History: Reports: Arthritis Denies: Fibromyalgia Skin Medical History: Denies: Eczema, Psoriasis Psychiatric Medical History: Reports: Depression, Other - Chronic pain Hematology: Denies: Anemia, Bleeding Tendencies Past Surgical History Past Surgical History: Reports: Cholecystectomy, Orthopedic Surgery - Lt BKA Denies: Appendectomy, Colostomy, Coronary Artery Bypass Graft, Gastric Bypass Surgery, Herniorrhaphy, Pacemaker, Tonsillectomy Social History Information Source: Patient, Emergency Med Personnel, [facility] Records Smoking Status: Never Smoker Frequency of Alcohol Use: None Hx Recreational Drug Use: No Drugs: None Hx Prescription Drug Abuse: No - Advance Directive Resuscitation Status: Full Code Family History Family History: DM, Hyperlipidemia, Hypertension Parental Family History Reviewed: Yes Children Family History Reviewed: Yes Sibling(s) Family History Reviewed.: Yes Medication/Allergy Home Medications: Insulin Aspart [Novolog Flexpen] 0 unit SQ .SLIDING SCALE 10/17/17 Insulin Glargine,Hum.rec.anlog [Lantus] 35 unit SQ QHS 10/17/17 Methadone HCl 20 mg PO BID 10/17/17 Oxycodone HCl 15 mg PO Q4HP PRN 10/17/17 Tamsulosin HCl 0.4 mg PO DAILY 10/17/17 Tiotropium [place] [Spiriva Respimat] 2 puff IH DAILY 10/17/17 Sofosbuvir/Velpatasvir [Epclusa 400 mg-100 mg Tablet] 1 each PO DAILY 01/20/18 Methadone HCl [Dolophine 10 mg Tablet] 10 mg PO QHS 02/12/18 Ondansetron [Zofran Odt 4 mg Tablet] 4 mg PO Q12H 02/12/18 Lactulose 5 gm PO DAILY PRN #1 ml 02/14/18 Propranolol HCl [Inderal 10 mg Tablet] 10 mg PO Q12 #60 tab 02/14/18 Spironolactone [Aldactone 25 mg Tablet] 0.5 tab PO BID #30 tablet 02/14/18 Allergies/Adverse Reactions: Penicillins Allergy (Mild, Verified 04/01/18 00:16) Generalized Itching propoxyphene napsylate [From Darvocet-N 100] Allergy (Mild, Verified 04/01/18 00:16) Generalized Itching Review of Systems ROS unobtainable: Due to mental status - Unreliable historian sedated with methadone, Other Constitutional: ABSENT: chills, fever(s), headache(s), weight gain, weight loss Eyes: ABSENT: visual disturbances Ears: ABSENT: hearing changes Cardiovascular: ABSENT: chest pain, dyspnea on exertion, edema, orthropnea, palpitations Respiratory: ABSENT: cough, hemoptysis Gastrointestinal: ABSENT: abdominal pain, constipation, diarrhea, hematemesis, hematochezia, nausea, vomiting Genitourinary: ABSENT: dysuria, hematuria Musculoskeletal: ABSENT: joint swelling Integumentary: ABSENT: rash, wounds Neurological: ABSENT: abnormal gait, abnormal speech, confusion, dizziness, focal weakness, syncope Psychiatric: ABSENT: anxiety, depression, homidical ideation, suicidal ideation Endocrine: ABSENT: cold intolerance, heat intolerance, polydipsia, polyuria Hematologic/Lymphatic: ABSENT: easy bleeding, easy bruising Physical Exam Vital Signs: Temp Pulse Resp BP Pulse Ox 98 F 67 20 137/71 H 95 04/01/18 01:40 04/01/18 04:00 04/01/18 03:01 04/01/18 03:01 04/01/18 03:01 Intake & Output 03/30/18 03/31/18 04/01/18 11:59 11:59 11:59 Weight 118 kg General appearance: PRESENT: cooperative, disheveled, mild distress, morbidly obese Head exam: PRESENT: atraumatic, normocephalic Eye exam: PRESENT: conjunctiva pink, EOMI, PERRLA. ABSENT: scleral icterus Ear exam: PRESENT: normal external ear exam Mouth exam: PRESENT: dry mucosa Neck exam: PRESENT: JVD. ABSENT: carotid bruit, lymphadenopathy, thyromegaly Respiratory exam: PRESENT: accessory muscle use, clear to auscultation adrian, crac kles, decreased breath sounds, symmetrical. ABSENT: rales, rhonchi, wheezes Cardiovascular exam: PRESENT: RRR, +S1, +S2, tachycardia. ABSENT: diastolic murmur, rubs, systolic murmur Pulses: PRESENT: normal dorsalis pedis pul Vascular exam: PRESENT: normal capillary refill GI/Abdominal exam: PRESENT: normal bowel sounds, soft. ABSENT: distended, guarding, mass, organolmegaly, rebound, tenderness Rectal exam: PRESENT: deferred Extremities exam: PRESENT: full ROM, +1 edema - Right leg with +1 edema and chronic vascular changes, other. ABSENT: calf tenderness, clubbing, pedal edema Neurological exam: PRESENT: altered, awake, oriented to person, oriented to place, oriented to situation, CN II-XII grossly intact Psychiatric exam: PRESENT: normal mood, unusual affect. ABSENT: homicidal ideat ion, suicidal ideation Skin exam: PRESENT: dry, intact, warm. ABSENT: cyanosis, rash Results Laboratory Results: 04/01/18 04:42 04/01/18 04:42 03/31/18 03/31/18 03/31/18 22:35 22:35 22:35 WBC 5.6 RBC 4.25 L Hgb 11.5 L Hct 34.3 L MCV 81 MCH 27.1 MCHC 33.5 RDW 15.2 H Plt Count 103 L Seg Neutrophils % 81.8 H Lymphocytes % 11.5 L Monocytes % 6.0 Eosinophils % 0.3 Basophils % 0.4 Absolute Neutrophils 4.6 Absolute Lymphocytes 0.7 Absolute Monocytes 0.3 Absolute Eosinophils 0.0 Absolute Basophils 0.0 Sodium 137.7 Potassium 3.4 L Chloride 101 Carbon Dioxide 32 H Anion Gap 5 BUN 20 Creatinine 0.87 Est GFR ( Amer) > 60 Est GFR (Non-Af Amer) > 60 Glucose 195 H Calcium 8.1 L Magnesium Total Bilirubin 1.3 AST 28 ALT 22 Alkaline Phosphatase 79 Total Protein 6.5 Albumin 2.9 L TSH 2.25 03/31/18 04/01/18 04/01/18 22:35 04:42 04:42 WBC 3.0 L RBC 4.13 L Hgb 11.0 L Hct 33.0 L MCV 80 MCH 26.7 L MCHC 33.4 RDW 15.4 H Plt Count 92 L Seg Neutrophils % 86.9 H Lymphocytes % 11.0 L Monocytes % 1.8 L Eosinophils % 0.2 Basophils % 0.1 Absolute Neutrophils 2.6 Absolute Lymphocytes 0.3 L Absolute Monocytes 0.1 Absolute Eosinophils 0.0 Absolute Basophils 0.0 Sodium 138.6 Potassium 3.4 L Chloride 103 Carbon Dioxide 28 Anion Gap 8 BUN 22 H Creatinine 0.90 Est GFR ( Amer) > 60 Est GFR (Non-Af Amer) > 60 Glucose 255 H Calcium 8.0 L Magnesium 1.8 Total Bilirubin AST ALT Alkaline Phosphatase Total Protein Albumin TSH 03/31/18 04/01/18 22:35 04:42 Creatine Kinase 58 Troponin I 0.024 NT-Pro-B Natriuret Pep 2960 H Impressions: Chest X-Ray 03/31/18 22:30 IMPRESSION: Small left pleural effusion. Chronic atelectasis at the lung bases. Assessment & Plan - Diagnosis (1) CHF (congestive heart failure) Qualifiers: Heart failure type: diastolic Heart failure chronicity: acute on chronic Qualified Code(s): I50.33 - Acute on chronic diastolic (congestive) heart failure Plan: CHF care set deployed, fluid restriction, diuresis (2) Hypoxemia Is this a current diagnosis for this admission?: Yes Plan: Secondary to #1, BiPAP (3) Chronic pain syndrome Is this a current diagnosis for this admission?: Yes Plan: May require opiate weaning, supportive care (4) Morbid (severe) obesity due to excess calories Is this a current diagnosis for this admission?: Yes Plan: Morbid obesity will evaluate for metabolic cause with evaluation of thyroid function and dietitian consultation - Time Time Spent: 50 to 70 Minutes - Inpatient Certification Medical Necessity: Need Close Monitoring Due to Risk of Patient Decompensation
[2018-04-01] MEDS: SPIRONOLACTONE 25 MG TABLET PO SCH ×2 (09:08→17:25)
[2018-04-01] MEDS: POTASSIUM CHLORIDE 10 MEQ CAPSULE.ER PO SCH ×2 (09:08→23:34)
[2018-04-01] MEDS: FUROSEMIDE INJ/PF 40 MG/4 ML SDV IV SCH ×2 (09:09→23:35)
[2018-04-01] MEDS: DOCUSATE SODIUM 100 MG CAPSULE PO SCH (09:10)
[2018-04-01 11:40] LABS: CREATINE KINASE MB 2.41 ng/mL (<4.55); TROPONIN I 0.017 ng/mL
[2018-04-01] MEDS ORDERED: DEXTROSE 50%-WATER SYRINGE 12.5 GM/25 ML DOSE IV PRN (12:30)
[2018-04-01] MEDS ORDERED: DEXTROSE 40% GEL 15 GM TUBE X 2 PO PRN (12:30)
[2018-04-01] MEDS ORDERED: GLUCAGON,HUMAN RECOMB 1 MG INJ IM PRN (12:30)
[2018-04-01] MEDS ORDERED: DEXTROSE 40% GEL 15 GM TUBE PO PRN (12:30)
[2018-04-01] MEDS ORDERED: DEXTROSE 50%-WATER SYRINGE 25 GM/50 ML DOSE IV PRN (12:30)
[2018-04-01] MEDS: INSULIN LISPRO 100 UNIT/ML 3 ML VIAL SUBCUT PRN ×2 (12:39→15:56)
--- NOTE | 2018-04-01 12:41 | EKG REPORT ---
SEVERITY:- ABNORMAL ECG - SINUS RHYTHM INFERIOR INFARCT, AGE INDETERMINATE BORDERLINE PROLONGED QT INTERVAL : Confirmed by: Daksha Fulton MD 01-Apr-2018 12:40:39
[2018-04-01] MEDS: OXYCODONE HCL IR 5 MG TABLET PO PRN ×2 (14:02→23:53)
[2018-04-01] MEDS ORDERED: ALBUTEROL SULFATE 0.083% NEB 2.5 MG/3 ML AMPUL NEB PRN (15:28)
[2018-04-01 16:49] LABS: ANION GAP 7 (5-19); BLOOD UREA NITROGEN 28 mg/dL (7-20); CALCIUM 7.9 mg/dL (8.4-10.2); CARBON DIOXIDE 28 mmol/L (22-30); CHLORIDE 102 mmol/L (98-107); CREATINE KINASE 58 U/L (55-170); GLUCOSE 283 mg/dL (75-110); POTASSIUM 3.5 mmol/L (3.6-5.0); SODIUM 136.9 mmol/L (137-145)
[2018-04-01 17:01] LABS: CREATINE KINASE MB 2.36 ng/mL (<4.55); TROPONIN I 0.013 ng/mL
[2018-04-01] MEDS ORDERED: METHADONE HCL 10 MG TABLET PO SCH ×2 (18:00→22:00)
[2018-04-01] MEDS ORDERED: INSULIN GLARGINE,HUM.REC.ANLOG 300 UNIT/3 ML INSULN.PEN SUBCUT SCH (22:00)
[2018-04-01] MEDS ORDERED: INSULIN GLARGINE,HUM.REC.ANLOG 1,000 UNIT/10 ML UNIT SUBCUT SCH (22:00)
[2018-04-02] MEDS: INSULIN LISPRO 100 UNIT/ML 3 ML VIAL SUBCUT PRN ×2 (00:24→07:57)
[2018-04-02 05:58] LABS: ABSOLUTE EOSINOPHILS # (AUTO) 0.1 10^3/uL (0.0-0.6); ABSOLUTE LYMPHOCYTES (AUTO) 1.1 10^3/uL (0.5-4.7); ABSOLUTE MONOCYTES (AUTO) 0.3 10^3/uL (0.1-1.4); ABSOLUTE NEUT (AUTO) 2.8 10^3/uL (1.7-8.2); BASOPHILS % (AUTO) 0.5 % (0-2); EOSINOPHILS % (AUTO) 1.3 % (0-6); HEMATOCRIT 30.5 % (37.9-51.0); LYMPHOCYTES % (AUTO) 24.8 % (13-45); MEAN CORPUSCULAR HEMOGLOBIN 26.2 pg (27.0-33.4); MEAN CORPUSCULAR HGB CONC 32.9 g/dL (32.0-36.0); MEAN CORPUSCULAR VOLUME 80 fl (80-97); MONOCYTES % (AUTO) 7.7 % (3-13); PLATELET COUNT 100 10^3/uL (150-450); RED BLOOD COUNT 3.83 10^6/uL (4.35-5.55); RED CELL DISTRIBUTION WIDTH 15.3 % (11.5-14.0); SEGMENTED NEUTROPHILS % (AUTO) 65.7 % (42-78); TOTAL CELLS COUNTED % (AUTO) 100 %; WHITE BLOOD COUNT 4.3 10^3/uL (4.0-10.5)
[2018-04-02] MEDS: HEPARIN SOD (PORCINE) 5,000 UNIT/ML 1 ML SYRINGE SUBCUT SCH (06:47)
[2018-04-02 06:51] LABS: ANION GAP 7 (5-19); BLOOD UREA NITROGEN 33 mg/dL (7-20); CALCIUM 8.2 mg/dL (8.4-10.2); CARBON DIOXIDE 30 mmol/L (22-30); CHLORIDE 102 mmol/L (98-107); GLUCOSE 204 mg/dL (75-110); POTASSIUM 3.3 mmol/L (3.6-5.0); SODIUM 138.6 mmol/L (137-145)
[2018-04-02] MEDS: OXYCODONE HCL IR 5 MG TABLET PO PRN (08:05)
[2018-04-02] MEDS ORDERED: METHADONE HCL 10 MG TABLET PO SCH ×2 (08:30→20:00)
[2018-04-02] MEDS: DOCUSATE SODIUM 100 MG CAPSULE PO SCH (09:28)
[2018-04-02] MEDS: SPIRONOLACTONE 25 MG TABLET PO SCH (09:28)
[2018-04-02] MEDS: POTASSIUM CHLORIDE 10 MEQ CAPSULE.ER PO SCH (09:29)
[2018-04-02] MEDS ORDERED: POTASSIUM CHLORIDE 10 MEQ CAPSULE.ER PO ONE (09:30)
[2018-04-02] MEDS: FUROSEMIDE INJ/PF 40 MG/4 ML SDV IV SCH (10:00)
[2018-04-02] MEDS ORDERED: NITROGLYCERIN 5 MG (0.2 MG/HR) PATCH.TD24 TD SCH (10:00)
[2018-04-02 14:04] VITALS: BP 139/69
--- NOTE | 2018-04-06 16:44 | PDOC DISCHARGE SUMMARY ---
General - Admit/Disc Date/PCP Admission Date/Primary Care Provider: 04/01/18 00:49 JATINDER MENDEZ, Discharge Date: 04/02/18 - Additional Information Resuscitation Status: Full Code Discharge Diet: Cardiac, Diabetic Discharge Activity: Activity As Tolerated, Balance Activity w/Rest, Keep Legs Elevated Prescriptions: Lactulose 5 gm PO DAILY PRN #1 bottle PRN Reason: Potassium Chloride [Klor-Con 10 Meq Capsule ER] 20 meq PO DAILY #5 capsule.er Home Medications: Methadone HCl 20 mg PO BID 10/17/17 Oxycodone HCl 15 mg PO Q4HP PRN 10/17/17 Tamsulosin HCl 0.4 mg PO DAILY 10/17/17 Tiotropium [place] [Spiriva Respimat] 2 puff IH DAILY 10/17/17 Sofosbuvir/Velpatasvir [Epclusa 400 mg-100 mg Tablet] 1 each PO DAILY 01/20/18 Methadone HCl [Dolophine 10 mg Tablet] 10 mg PO QHS 02/12/18 Propranolol HCl [Inderal 10 mg Tablet] 10 mg PO Q12 #60 tab 02/14/18 Furosemide [Lasix 40 mg Tablet] 40 mg PO BID 04/02/18 Lactulose 5 gm PO DAILY PRN #1 bottle 04/02/18 Potassium Chloride [Klor-Con 10 Meq Capsule ER] 20 meq PO DAILY #5 capsule.er 04/02/18 Spironolactone [Aldactone 25 mg Tablet] 25 mg PO BID 04/02/18 History of Present Illness History of Present Illness: Admitting hospitalist's H&P: ART SORENSEN is a 62 year old male with a somewhat unclear past medical hi story as he appears to be sedated. His history is obtained by the record and medication bottles. Hepatic cirrhosis secondary to hepatitis C, opiate dependent chronic pain, diastolic heart failure, hypertension, morbid obesity, diabetes, peripheral vascular disease and GERD. Patient presents with shortness of breath satting 82% on room air and systolic pressure in the 190s. He receives Lasix and BiPAP then referred to the hospitalist for admission. Patient denies chest pain palpitations nausea or vomiting. He denies recent change in medications though he is unaware of any dietary restrictions. Hospital Course Hospital Course: Ms. Sorensen is a 62 yr old male with a PMH of cirrhosis from hepatitis C, opiate dependence, HTN, morbid obesity, diet-controlled DM, PVD and GERD who initially presented with SOB and hypoxia with sats at 88%. He was admitted for fluid overload and was started on IV lasix. He did continue to diurese and had improvement in his SOB. Patient insisted on going home today. He says he was extremely upset that his methadone were not given on time by his nurse. Explained that I recommend staying for at least a day and adjusting his diuretic regimen as it seems the dosing and ratio of his lasix and aldactone are not optimized for cirrhosis- related ascites. Patient says that his PCP resumed his previous regimen when he followed up after leaving against medical advice on his previous admission. He refused changes at this time and says that he would rather have his PCP adjust it when he follows up with him next week. Physical Exam Vital Signs: Temp Pulse Resp BP Pulse Ox 98.6 F 79 18 140/63 H 97 04/02/18 12:16 04/02/18 12:16 04/02/18 12:16 04/02/18 05:40 04/02/18 12:16 Intake & Output 04/01/18 04/02/18 04/03/18 06:59 06:59 06:59 Intake Total 1948 Output Total 1525 Balance 423 Weight 262 lb 5.601 oz 265 lb 10.512 oz General appearance: PRESENT: no acute distress, well-developed, well-nourished Head exam: PRESENT: atraumatic, normocephalic Eye exam: PRESENT: conjunctiva pink, EOMI, PERRLA. ABSENT: scleral icterus Ear exam: PRESENT: normal external ear exam Mouth exam: PRESENT: moist, tongue midline Neck exam: ABSENT: carotid bruit, JVD, lymphadenopathy, thyromegaly Respiratory exam: PRESENT: rhonchi. ABSENT: rales, wheezes Cardiovascular exam: PRESENT: RRR. ABSENT: diastolic murmur, rubs, systolic murmur Pulses: PRESENT: normal dorsalis pedis pul GI/Abdominal exam: PRESENT: ascites. ABSENT: tenderness Rectal exam: PRESENT: deferred Neurological exam: PRESENT: alert, awake, oriented to person, oriented to place, oriented to time, oriented to situation, CN II-XII grossly intact. ABSENT: motor sensory deficit Results Laboratory Results: 04/02/18 05:38 04/02/18 05:38 04/01/18 04/02/18 04/02/18 16:20 05:38 05:38 WBC 4.3 RBC 3.83 L Hgb 10.0 L Hct 30.5 L MCV 80 MCH 26.2 L MCHC 32.9 RDW 15.3 H Plt Count 100 L Seg Neutrophils % 65.7 Lymphocytes % 24.8 Monocytes % 7.7 Eosinophils % 1.3 Basophils % 0.5 Absolute Neutrophils 2.8 Absolute Lymphocytes 1.1 Absolute Monocytes 0.3 Absolute Eosinophils 0.1 Absolute Basophils 0.0 Sodium 136.9 L 138.6 Potassium 3.5 L 3.3 L Chloride 102 102 Carbon Dioxide 28 30 Anion Gap 7 7 BUN 28 H 33 H Creatinine 1.04 1.21 Est GFR ( Amer) > 60 > 60 Est GFR (Non-Af Amer) > 60 > 60 Glucose 283 H 204 H Calcium 7.9 L 8.2 L 03/31/18 04/01/18 04/01/18 22:35 04:42 04:42 Creatine Kinase 58 CK-MB (CK-2) 1.68 Troponin I 0.024 0.040 NT-Pro-B Natriuret Pep 2960 H 04/01/18 04/01/18 04/01/18 10:40 10:40 16:20 Creatine Kinase 64 58 CK-MB (CK-2) 2.41 Troponin I 0.017 NT-Pro-B Natriuret Pep 04/01/18 16:20 Creatine Kinase CK-MB (CK-2) 2.36 Troponin I 0.013 NT-Pro-B Natriuret Pep Impressions: Chest X-Ray 03/31/18 22:30 IMPRESSION: Small left pleural effusion. Chronic atelectasis at the lung bases. Qualifiers - * PATIENT BEING DISCHARGED WITH ANY OF THE FOLLOWING DIAGNOSIS: No
== END 2018-04-02 13:18 | disposition home or self-care (01) | DRG 292 ==
LOC: ER 22:23 → EH 04-01 00:49 → 3S 04-01 03:42
PROVIDERS: ADMIT Internal Medicine; ATTEND Internal Medicine
DX: I11.0 Hypertensive heart disease with heart failure (principal); F11.20 Opioid dependence, uncomplicated; I50.33 Acute on chronic diastolic (congestive) heart failure; R09.02 Hypoxemia; E87.6 Hypokalemia; K74.60 Unspecified cirrhosis of liver; B19.20 Unspecified viral hepatitis C without hepatic coma; G89.4 Chronic pain syndrome; E66.01 Morbid (severe) obesity due to excess calories; Z79.4 Long term (current) use of insulin; Z79.899 Other long term (current) drug therapy
CPT/HCPCS: 36415; 71045; 80048; 80053; 80307; 82550; 82553; 82962; 83735; 83880; 84443; 84484; 85025; 93005; 93010; 94660; 96374; 99285; J1644; J1815; J1940; J2060; J3490

== ENCOUNTER → 2018-08-03 | Outpatient (CLI) | payer MEDICAID ==
--- NOTE | 2018-08-04 13:03 | XCELERA REPORT ---
[address] [address] Lower Extremity Arterial Evaluation Name: ART SORENSEN Age: 63 yrs Gender: Male : 1955 Patient Status: Outpatient Patient Location: Study Date: 08/03/2018 10:24 AM Procedure: A color flow and duplex scan of the lower extremity arteries was performed on the right with velocity and waveform anaylsis. 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 Ankle Brachial index 1.22. Left Side Arterial Evaluation Amputation noted. Interpretation Summary No hemodynamically significant lesions in the right lower extremity only, on duplex imaging, at rest. : LILLI DENNEY > Lorenzo Jackson
== END ==
LOC: SP 09:39
PROVIDERS: ATTEND Nurse Practitioner Family
DX: L97.212 Non-pressure chronic ulcer of right calf with fat layer exposed (principal)
CPT/HCPCS: 93922; 93926

== ENCOUNTER → 2018-12-07 | Outpatient (CLI) | payer MEDICAID ==
[2018-12-07 12:21] LABS: HEMATOCRIT 35.4 % (37.9-51.0); HEMOGLOBIN 11.5 g/dL (13.5-17.0); MEAN CORPUSCULAR HEMOGLOBIN 25.7 pg (27.0-33.4); MEAN CORPUSCULAR HGB CONC 32.6 g/dL (32.0-36.0); MEAN CORPUSCULAR VOLUME 79 fl (80-97); PLATELET COUNT 117 10^3/uL (150-450); RED BLOOD COUNT 4.48 10^6/uL (4.35-5.55); RED CELL DISTRIBUTION WIDTH 16.7 % (11.5-14.0); WHITE BLOOD COUNT 4.5 10^3/uL (4.0-10.5)
--- NOTE | 2018-12-07 12:30 | RADIOLOGY REPORT (SQ) ---
EXAM DESCRIPTION: CHEST PA/LATERAL COMPLETED DATE/TIME: 12/07/2018 12:22 pm REASON FOR STUDY: COUGH COMPARISON: 03/31/2018 EXAM PARAMETERS: NUMBER OF VIEWS: two views TECHNIQUE: Digital Frontal and Lateral radiographic views of the chest acquired. RADIATION DOSE: NA LIMITATIONS: none FINDINGS: LUNGS AND PLEURA: No opacities, masses or pneumothorax. No pleural effusion. MEDIASTINUM AND HILAR STRUCTURES: No masses or contour abnormalities. HEART AND VASCULAR STRUCTURES: Heart size is borderline. No pulmonary edema. BONES: No acute findings. HARDWARE: None in the chest. OTHER: No other significant finding. IMPRESSION: Borderline heart size without pulmonary edema. TECHNICAL DOCUMENTATION: JOB ID: [id number] [employer]- All Rights Reserved Reading location - IP/workstation name: [email or web address]
[2018-12-07 12:48] LABS: ALBUMIN 3.8 g/dL (3.5-5.0); ALKALINE PHOSPHATASE 72 U/L (38-126); ANION GAP 10 (5-19); ASPARTATE AMINO TRANSFERASE 40 U/L (17-59); BILIRUBIN,DIRECT 0.2 mg/dL (0.0-0.4); BILIRUBIN,TOTAL 0.4 mg/dL (0.2-1.3); BLOOD UREA NITROGEN 43 mg/dL (7-20); CALCIUM 9.1 mg/dL (8.4-10.2); CARBON DIOXIDE 28 mmol/L (22-30); CHLORIDE 101 mmol/L (98-107); GLUCOSE 87 mg/dL (75-110); POTASSIUM 4.4 mmol/L (3.6-5.0); TOTAL PROTEIN 7.6 g/dL (6.3-8.2)
--- NOTE | 2018-12-08 08:45 | EKG REPORT ---
SEVERITY:- ABNORMAL ECG - SINUS RHYTHM INFERIOR INFARCT, OLD LATERAL INFARCT, OLD CONSIDER ANTERIOR INFARCT : Confirmed by: Daksha Fulton MD 08-Dec-2018 08:45:09
== END ==
LOC: OD 11:25
PROVIDERS: ATTEND Surgery
DX: Z01.818 Encounter for other preprocedural examination (principal); K52.9 Noninfective gastroenteritis and colitis, unspecified; E11.9 Type 2 diabetes mellitus without complications; I10 Essential (primary) hypertension; K74.60 Unspecified cirrhosis of liver; B19.20 Unspecified viral hepatitis C without hepatic coma; I50.9 Heart failure, unspecified; I25.2 Old myocardial infarction; Z98.890 Other specified postprocedural states
CPT/HCPCS: 36415; 71046; 80053; 85027; 93005; 93010

== ENCOUNTER 2018-12-19 09:10 | Day surgery (SDC) | payer MEDICAID ==
[~2018-12-19 09:10] MED LIST changes: -ALBUMIN HUMAN 100 ML IV PRN; +IBUPROFEN 800 MG in NORMAL SALINE 250 ML IV PRN; +NORMAL SALINE 1000 ML 1,000 ML IV PRN; +VANCOMYCIN HCL 1,000 MG in DEXTROSE 5%-WATER 250 ML IV PRN
[2018-12-19] MEDS ORDERED: BUPIVACAINE HCL 0.25 % INJ/PF (2.5 MG/1 ML) 30 ML VIAL ONE (10:35)
[2018-12-19 10:51] LABS: POTASSIUM 4.1 mmol/L (3.6-5.0)
[2018-12-19] MEDS ORDERED: LIDOCAINE 2% INJ-PF (20 MG/ML) 2 ML AMPUL ONE (10:51)
[2018-12-19] MEDS ORDERED: NEOSTIGMINE METHYLSULFATE 10 MG/10 ML VIAL ONE (10:51)
[2018-12-19] MEDS ORDERED: DEXAMETHASONE SOD PHOSPHATE INJ 4 MG/1 ML VIAL ONE (10:51)
[2018-12-19] MEDS ORDERED: SUCCINYLCHOLINE CHLORIDE INJ 200 MG/10 ML VIAL ONE (10:51)
[2018-12-19] MEDS ORDERED: ONDANSETRON HCL INJ/PF 4 MG/2 ML SDV ONE (10:51)
[2018-12-19] MEDS ORDERED: ROCURONIUM BROMIDE INJ 50 MG/5 ML VIAL IV ONE (10:51)
[2018-12-19] MEDS ORDERED: GLYCOPYRROLATE 1 MG/5 ML VIAL ONE (10:51)
[2018-12-19] MEDS ORDERED: FENTANYL CITRATE INJ/PF 250 MCG/5 ML AMPULE ONE (12:47)
[2018-12-19] MEDS ORDERED: MIDAZOLAM 2 MG/2 ML INJ ONE (12:47)
[2018-12-19] MEDS ORDERED: PROPOFOL INJ 200 MG/20 ML VIAL IV ONE (12:48)
[2018-12-19] MEDS ORDERED: FENTANYL CITRATE INJ/PF 100 MCG/2 ML AMPUL IV PRN ×3 (12:51)
[2018-12-19] MEDS ORDERED: MEPERIDINE HCL/PF INJ 25 MG/1 ML DISP.SYRIN IV PRN (12:51)
[2018-12-19] MEDS ORDERED: DIPHENHYDRAMINE HCL 50 MG/ML VIAL IV PRN (12:51)
[2018-12-19] MEDS ORDERED: OXYCODONE-ACETAMINOPHEN 5-325 MG TABLET PO PRN ×2 (12:51)
[2018-12-19] MEDS ORDERED: PROMETHAZINE HCL INJ 25 MG/1 ML VIAL IV PRN ×2 (12:51)
[2018-12-19] MEDS ORDERED: BUPIVACAINE HCL 0.25 % INJ/PF (2.5 MG/1 ML) 30 ML VIAL INJ ONE ×2 (14:00)
--- NOTE | 2018-12-19 15:57 | Discharge Summary ---
Discharge Summary (SDC) - Discharge Final Diagnosis: Incarcerated ventral incisional hernia Date of Surgery: 12/19/18 Discharge Date: 12/19/18 Condition: Stable Treatment or Instructions: Discharge home. Diet as tolerated. Activity: No lifting greater than 10 pounds x 6 weeks. No lifting, straining, pushing, pulling, tugging, climbing ladders, or any other strenuous activity for 6 weeks. Oxycodone 10 mg p.o. every 6 hours as needed for pain. Follow-up with me in 7 to 10 days. Okay to shower on . Referrals: JATINDER MENDEZ DO [Primary Care Provider] - Discharge Diet: As Tolerated Respiratory Treatments at Home: Deep Breathing/Coughing, Incentive Spirometer Discharge Activity: No Lifting Over 10 Pounds, No Lifting/Push/Pulling Home Care Assistance: Provided by Family Report the Following to Your Physician Immediately: Shortness of Breath, Nausea, Vomiting, Increase in Pain, Fever over 101 Degrees, Unusual Bleeding
--- NOTE | 2018-12-19 16:04 | Operative Report ---
Nonrecallable Operative Report DATE OF SURGERY: 12/19/18 PREOPERATIVE DIAGNOSIS: Incarcerated ventral incisional hernia POSTOPERATIVE DIAGNOSIS: Same as above OPERATION: Robot-assisted laparoscopic ventral incisional hernia repair, incarcerated, with mesh. SURGEON: ROBYN BENNETT 1ST NONPROFIT FUNDRAISER: KHLOE SAL ANESTHESIA: GA TISSUE REMOVED OR ALTERED: None COMPLICATIONS: None apparent ESTIMATED BLOOD LOSS: Minimal PROCEDURE: Drains/implants: 15 x [address] hernia mesh. Procedure in detail: After informed consent was obtained, the patient was brought to the operating room and laid in the supine position. The area of the abdomen was prepped and draped in a normal sterile fashion. Incision was created in the left upper quadrant with a 15 blade scalpel. The 5 mm trocar, 5 mm camera were inserted into the abdomen using the Optiview technique. Once the camera was inserted, gas insufflation was attached, and pneumoperitoneum was achieved. A left lower quadrant 8 mm robotic trocar was placed under direct laparoscopic visualization. A 12 mm balloon trocar was placed in the left lateral abdomen in similar fashion. The 5 mm trocar was removed, and replaced with an 8 mm robotic trocar. The robot was then brought over the patient and docked appropriately. I then assumed my position at the surgeon's console. Attention was turned to the hernia defect. There was a large amount of omentum incarcerated within the defect. The omentum was freed from the hernia defect, which appeared to be a [place] cheese defect, approximately 8 cm in craniocaudal dimension. Once the omentum was freed, the defect was closed using running #1 V Lock Suture, nonabsorbable. Once the defect was closed, attention was turned to placement of the mesh. A 15 x [address] hernia mesh was chosen to adequately cover the defect. The mesh was inserted into the abdominal cavity and apposed to the anterior abdominal wall using the EPS. The mesh was sutured to the anterior abdominal wall using 2-0 V Lock Suture in simple running fashion circumferentially. A final stitch was placed down the center of the mesh, adhering the middle of the mesh to the anterior abdominal wall. Once this was completed, the mesh was found to lie in very good position. The robot was undoc ked, and I scrubbed back into the case. The 8 mm trocar sites were closed using 0 Vicryl suture in simple interrupted fashion with the aid of the [place]-Noe device. The 12 mm trocar was closed using 0 Vicryl suture in [id number] fashion through the aid of the [place]- Noe device. Once this was completed the overlying skin was closed using 4- 0 Vicryl Rapide suture in subcuticular fashion. Dressings were placed, and the procedure was concluded. All sponge, instrument, and needle counts were correct x2. Condition: Stable. Khloe Sal PA-C was scrubbed and present the entirety of the procedure. She assisted with all portions of the procedure including placement of the trochars, docking of the robot, exchanging of the robotic instruments, insertion of the mesh, closure of the fascia, and closure of the skin.
[2018-12-19] MEDS: HYDROMORPHONE HCL INJ/PF 2 MG/ML AMPULE ONE ×2 (16:08→16:15)
[2018-12-19] MEDS: FENTANYL CITRATE INJ/PF 100 MCG/2 ML AMPUL ONE ×2 (16:25→16:45)
[2018-12-19] MEDS ORDERED: PROMETHAZINE HCL INJ 25 MG/1 ML VIAL ONE (16:27)
[2018-12-19] MEDS ORDERED: OXYCODONE HCL IR 5 MG TABLET PO PRN (18:34)
[2018-12-19] MEDS ORDERED: OXYCODONE HCL IR 5 MG TABLET ONE (18:37)
[2018-12-19 19:09] VITALS: BP 154/81
== END 2018-12-19 19:15 | disposition home or self-care (01) ==
LOC: OROUT 09:10
PROVIDERS: ATTEND Surgery
DX: K42.9 Umbilical hernia without obstruction or gangrene (principal); K43.0 Incisional hernia with obstruction, without gangrene; J44.9 Chronic obstructive pulmonary disease, unspecified; R06.02 Shortness of breath; I25.2 Old myocardial infarction; E11.9 Type 2 diabetes mellitus without complications; E66.9 Obesity, unspecified; I11.9 Hypertensive heart disease without heart failure; B19.20 Unspecified viral hepatitis C without hepatic coma; Z89.519 Acquired absence of unspecified leg below knee; Z79.4 Long term (current) use of insulin; Z68.38 Body mass index [BMI] 38.0-38.9, adult; Z87.891 Personal history of nicotine dependence; Z79.51 Long term (current) use of inhaled steroids; K74.60 Unspecified cirrhosis of liver; Z79.899 Other long term (current) drug therapy
CPT/HCPCS: 49655; S2900; 36415; 82947; 84132; 86850; 86900; 86901; J0330; J1100; J1170; J1741; J2250; J2405; J2550; J2704; J2710; J3010; J3370; J3490; J7050; J7060